=== PATIENT | male | born 1960 | race Caucasian/White ===

== ENCOUNTER 2019-03-31 06:26 | Inpatient (IN) | payer BC ==
[2019-03-31 07:01] LABS: #Basophils 0.1 thou/uL (0.0-0.2); #Eosinphils 0.1 thou/uL (0.0-0.7); #Monocytes 0.7 thou/uL (0.11-0.59); #Neutrophils 5.1 thou/uL (1.40-6.50); %Basophils 0.9 % (0.0-1.0); %Lymphocytes 14.1 % (21.0-51.0); %Monocytes 9.4 % (0.0-10.0); %Neutrophils 73.5 % (42.0-75.0); Hemoglobin 14.8 g/dL (14.0-18.0); Mean Corpuscular HGB CONC 33.5 g/dL (32.0-36.0); Mean Corpuscular Hemoglobin 29.7 pg (27.0-31.0); Mean Corpuscular Volume 88.6 fL (78.0-98.0); Mean Platelet Volume 7.3 fL (7.4-10.4); Platelet Count 306 thou/uL (130-400); RBC Distribution Width 13.4 % (11.5-14.5); Red Blood Cell (RBC) Count 4.99 mill/uL (4.70-6.10); White Blood Cell (WBC) Count 6.9 thou/uL (4.8-10.8)
[2019-03-31 07:13] LABS: ALT (SGPT) 26 U/L (8-55); AST (SGOT) 23 U/L (5-34); Albumin 4.8 g/dL (3.5-5.0); Alkaline Phosphatase 210 U/L (40-110); Anion Gap 16 mmol/L (10-20); BUN (Urea Nitrogen) 9 mg/dL (8.4-25.7); Bilirubin, Total 0.9 mg/dL (0.2-1.2); Calc. Creatinine Clearance 0 mL/min (70-130); Calcium 10.1 mg/dL (7.8-10.44); Carbon Dioxide 29 mmol/L (22-29); Chloride 93 mmol/L (98-107); Estimated GFR-MDRD 78; Globulin 3.6 g/dL (2.4-3.5); Glucose 336 mg/dL (70-105); Protein, Total 8.4 g/dL (6.0-8.3); Sodium 134 mmol/L (136-145)
[2019-03-31] MEDS ORDERED: Aspirin Chewable 81 MG TAB ONE (07:27)
[2019-03-31] MEDS ORDERED: Azithromycin 500 MG VIAL ONE (07:27)
[2019-03-31] MEDS ORDERED: cefTRIAXone\\ROCEPHIN 2 GM VIAL ONE (07:27)
[2019-03-31 07:34] LABS: CKMB 1.9 ng/mL (0-6.6)
--- NOTE | 2019-03-31 07:38 | RAD ---
CHEST ONE VIEW PORTABLE: HISTORY: Chest pain and shortness of breath. FINDINGS: Borderline heart size. Bilateral vascular congestion with some increased markings bilaterally and julissa e left sided pleural thickening or some pleural effusion. No confluent pneumonia. IMPRESSION: Bilateral vascular congestion with increased markings bilaterally and some pleural changes in the lef t chest. Continue short-term followup. POS: [facility]
[2019-03-31] MEDS ORDERED: Furosemide 40 MG/4 ML VIAL ONE (08:29)
[2019-03-31] MEDS ORDERED: Nitroglycerin 2% Ointment 1 INCH/1 GM Packet ONE (08:29)
[2019-03-31] MEDS ORDERED: Dextrose 5% in Water 1,000 ML IV PRN (09:16)
[2019-03-31] MEDS ORDERED: Dextrose 50% Abboject 50 ML SYRINGE SLOW IVP PRN (09:16)
[2019-03-31] MEDS ORDERED: Morphine 4 MG/ML VIAL SLOW IVP PRN (09:42)
[2019-03-31] MEDS ORDERED: Ondansetron PF 4 MG/2 ML Vial IVP PRN (09:42)
[2019-03-31 10:32] VITALS: BMI 29.6
--- NOTE | 2019-03-31 10:38 | HP ---
CHIEF COMPLAINT: Shortness of breath and chest pain. HISTORY OF PRESENT ILLNESS: The patient is a 59-year-old male with history of rectal cancer and history of diabetes, who is currently not on any medications, had rectal cancer, status post chemoradiation and surgery in 2013 and 2014. Also, has a history of DVT, which was provoked, who comes into the hospital with complaints of shortness of breath and chest pain going on for about a week. The patient states that for about a week, he has noticed that initially he thought it was a sinus congestion, has been having worsening shortness of breath on exertion, especially mowing his lawn. He states that he does have PND, but no orthopnea. He states that he wakes up in the middle of the night, sometimes getting feeling very wheezy and unable to catch his breath. He denies any fevers or chills, any abdominal pain or diarrhea, any weight loss or any fullness. The patient states that he has never really followed up with his oncologist after since 2013 and 2014 and has never had a colonoscopy or any further workup. He also does not take any blood sugar medications. He has taken himself off it. He used to take holistic medications. The patient stated that last night he came into the hospital because his shortness of breath at rest got worse to the point that he could not catch his breath, so he came into the hospital. Denied any significant chest tightness currently, however, he states that initially he started having a pressure-like sensation to the right side radiating to the left side, felt like someone's arm was on his chest. PAST MEDICAL HISTORY: History of rectal cancer; history of diabetes, not on any medication; and history of DVT. PAST SURGICAL HISTORY: He has had a rectal surgery and tonsillectomy. FAMILY HISTORY: Mother had Alzheimer's. Father had small cell carcinoma of the lung. REVIEW OF SYSTEMS: All negative except for the ones mentioned above in the HPI. SOCIAL HISTORY: The patient dips, does not smoke. He drinks alcohol every day with some liquor. No withdrawals noted. No known recreational drug use. He is a full code. PHYSICAL EXAMINATION: VITAL SIGNS: Are as of the following; temperature of 98.4, oxygen saturation 95% on 2 L, blood pressure 139/97, and pulse of 97. GENERAL: He is awake, alert, and oriented x3. Does not appear in any distress. CARDIOVASCULAR: S1 and S2 present. No murmurs, rubs, or gallops. LUNGS: Decreased breath sounds to right lung. ABDOMEN: Soft and nontender. Bowel sounds are present x2. EXTREMITIES: No edema. Pedal pulses are present x2. NEUROVASCULAR: Neurovascular-sanchez, no focal deficits noted. SKIN: No cuts, lesions, or bruises noted. DIAGNOSTIC DATA: Labs are as of the following; WBC of 6.9, hemoglobin of 14.8, hematocrit of 44.2, and platelets of 306. Chemistry; sodium of 134, potassium of 4.0, BUN of 9, creatinine of 0.98, glucose of 336. . Troponin is 0.030. His BNP is 117.5. Alkaline phosphatase is 210. He did have a CT chest, which indicated right Toprol effusion, no PE. However, also noted to have a possible liver mass. Chest x-ray that was done in the ER just showed he had bilateral vascular congestion. ASSESSMENT AND PLAN: The patient is a very pleasant 59-year-old male, who presents to the hospital with complaints of shortness of breath. 1. Shortness of breath, most likely secondary to new-onset heart failure. The patient has no history of heart disease. We will go ahead and get an echocardiogram. We will start him on some diuretics. I also may consult Cardiology based on the echocardiogram. His troponins have been mildly elevated. We will try and trend them. 2. Right liver mass. We will check an alpha-fetoprotein. We will get a right upper quadrant ultrasound. He may also need a triphasic CT or a CT with contrast to further evaluate of his liver mass. Given his history of rectal cancer, this possibility could be a malignant. We may require a biopsy or even GI for further consultation based on the radiological findings. 3. Diabetes. His sugars were 336. We will check hemoglobin A1c. Put him on some sliding scale and continue to monitor. 4. Deep vein thrombosis prophylaxis. We will put patient on SCDs. Job ID: [id number]
--- NOTE | 2019-03-31 11:05 | CT ---
CT ANGIOGRAM CHEST WITH 3D RENDERING: HISTORY: Chest pain. Dyspnea. Shortness of breath for one to two weeks. Borderline cardiomegaly. Bilateral ple ural effusions, small to moderate on the right side and very small on the left side. Bilateral vascul ar congestion. No convincing CT evidence for acute pulmonary embolism. FINDINGS: There are multiple pulmonary nodules within the right and left lungs, the largest of which is in the lingula, at 1.2 cm, with several bilateral pulmonary nodules, up to 0.8 cm. Poorly defined low attenu ation nodularity replacing much of the left lobe of the liver, up to approximately 12 cm in transvers e diameter, very suspicious for a large neoplastic mass, such as a hepatoma. IMPRESSION: 1. Large poorly defined mass replacing much of the left lobe of the liver, suspicious for hepatoma. 2. Bilateral pulmonary nodules, up to 1.2 cm in the lingula. Further evaluation with PET scan is lele mmended. 3. Bilateral pleural effusions, greater on the right side. 4. No convincing CT evidence for acute pulmonary embolism. 5. Enlarged right hilar lymph node. 6. Other findings as above. Findings were discussed with Kamryn in the emergency room at 8:[address] CODE CR CODE LN POS: [facility]
[2019-03-31 13:19] LABS: Hemoglobin A1c 11.6 % (4.0-6.0)
[2019-03-31 13:40] LABS: Troponin I 0.025 ng/mL (< 0.028)
[2019-03-31] MEDS ORDERED: Iopamidol-370 76% 500 ML 1 ML ONE (13:41)
[2019-03-31] MEDS: HumaLOG 300 UNITS/3 ML VIAL SC PRN ×3 (14:00→21:13)
[2019-03-31] MEDS: Furosemide 20 MG/2 ML VIAL SLOW IVP SCH (14:00)
[2019-03-31] MEDS: Sodium Chloride 0.9% 10 ML ONE ×2 (14:01→20:24)
--- NOTE | 2019-03-31 14:59 | ULT ---
Right upper quadrant ultrasound: HISTORY: History of rectal cancer, liver mass. Coarse liver echogenicity evidence for nonspecific chronic liver disease. Somewhat poorly defined bethany id multilobulated mass replacing most of the left lobe of the liver measuring 6.4 x 6.6 x 7.2 cm. This could represent a large solitary liver hepatoma versus a very large solitary metastasis. The gal lbladder demonstrates no evidence for gallstones, wall thickening or pericholecystic fluid. There is evidence for right pleural effusion. 1.3 cm right renal cyst without hydronephrosis. Common bile d uct 0.4 cm. IMPRESSION: Very large solid mass replacing much of the left lobe of the liver. Coarse nonspecific liver echogenicity evidence for chronic liver disease.
[2019-03-31] MEDS ORDERED: Carvedilol 6.25 MG TAB PO SCH (17:00)
[2019-03-31] MEDS: Lisinopril 5 MG TAB PO SCH (20:24)
[2019-03-31] MEDS ORDERED: Acetaminophen 325 MG TAB PO PRN (23:49)
--- NOTE | 2019-04-01 01:04 | CON ---
DATE OF CONSULTATION: 03/31/2019 REASON FOR CONSULTATION: Congestive heart failure. HISTORY OF PRESENT ILLNESS: Mr. Cardenas is a pleasant 59-year-old man. Recently he has been noticing increasing cough especially when he try to lie down and some shortness of breath. He ultimately went to an urgent care and they did notice a very rapid heart rate, he was referred to the emergency room. He does have shortness of breath with exertion and difficulty breathing when he tries to lie flat. He has received diuretics today, and he says his breathing is improving. He has a history of rectal cancer many years ago. He said he has not gone for followup concerning this problem. It is found on an ultrasound during this admission that he has a large mass in his liver. The patient had surgery of further rectal cancer 2013. He later had a deep venous thrombosis that was treated with anticoagulants. PAST MEDICAL HISTORY: As outlined above. Also diabetes, but he is not taking any medicine. PAST SURGICAL HISTORY: As outlined above. FAMILY HISTORY: Multiple people have coronary artery disease. REVIEW OF SYSTEMS: Otherwise, negative. SOCIAL HISTORY: No smoking. He does drink alcohol. PHYSICAL EXAMINATION: GENERAL: This is a very pleasant, cooperative gentleman, in no distress. He still cannot lie down flat. VITAL SIGNS: His blood pressure 142/94, then 122/75, pulse 106, it is sinus with frequent PACs. EYES: Sclerae nonicteric. MOUTH: Mucous membranes moist. NECK: Supple. No lymphadenopathy. LUNGS: Clear. No wheezing, rales, or rhonchi. CARDIAC: Tachycardiac for rest. No murmur, rub, or gallop. ABDOMEN: Soft, nontender. EXTREMITIES: No clubbing or cyanosis. No edema. Good peripheral pulses. LABORATORY STUDIES: EKG; sinus tachycardia with PVCs, nonspecific ST changes and nonspecific T-wave changes. BNP is markedly elevated at 1175, creatinine 0.98. Hemoglobin is 14.8. D-dimer was 1.2. Chest CTA revealed lung nodule and a large poorly-defined mass replacing much of the left lobe of the liver suspicious for hepatoma. ASSESSMENT: 1. Congestive heart failure, probably systolic, acute on chronic. Echocardiogram pending. 2. History of rectal cancer with abnormal findings on evaluation of his liver and lungs, possibly metastatic disease. 3. Uncontrolled diabetes. 4. Currently not compensated from a cardiac standpoint, unable to lie flat before becoming short of breath. PLAN: 1. Increase carvedilol dose, heart rate is still high. 2. Continue diuresis. 3. Increase his BARI inhibitors. 4. Echocardiogram tomorrow. We will follow with you. Ultimately cardiac catheterization and evaluation of his underlying probable malignancy. Job ID: [id number]
[2019-04-01 04:50] LABS: #Basophils 0.1 thou/uL (0.0-0.2); #Eosinphils 0.2 thou/uL (0.0-0.7); #Monocytes 0.7 thou/uL (0.11-0.59); #Neutrophils 3.8 thou/uL (1.40-6.50); %Basophils 1.2 % (0.0-1.0); %Eosinophils 3.9 % (0.0-10.0); %Lymphocytes 17.5 % (21.0-51.0); %Monocytes 11.4 % (0.0-10.0); %Neutrophils 66.1 % (42.0-75.0); Hemoglobin 12.9 g/dL (14.0-18.0); Mean Corpuscular HGB CONC 31.9 g/dL (32.0-36.0); Mean Corpuscular Hemoglobin 28.2 pg (27.0-31.0); Mean Corpuscular Volume 88.4 fL (78.0-98.0); Mean Platelet Volume 7.5 fL (7.4-10.4); Platelet Count 293 thou/uL (130-400); RBC Distribution Width 13.3 % (11.5-14.5); Red Blood Cell (RBC) Count 4.58 mill/uL (4.70-6.10); White Blood Cell (WBC) Count 5.7 thou/uL (4.8-10.8)
[2019-04-01 05:11] LABS: ALT (SGPT) 18 U/L (8-55); AST (SGOT) 15 U/L (5-34); Albumin 3.8 g/dL (3.5-5.0); Alkaline Phosphatase 161 U/L (40-110); Anion Gap 14 mmol/L (10-20); BUN (Urea Nitrogen) 14 mg/dL (8.4-25.7); Bilirubin, Total 0.5 mg/dL (0.2-1.2); Calc. Creatinine Clearance 118 mL/min (70-130); Calcium 9.4 mg/dL (7.8-10.44); Carbon Dioxide 29 mmol/L (22-29); Cardiac Risk 4.9 (Less than 4.5); Chloride 98 mmol/L (98-107); Cholesterol 186 mg/dl (< 200 Desired); Estimated GFR-MDRD 90; Globulin 2.9 g/dL (2.4-3.5); Glucose 280 mg/dL (70-105); HDL Cholesterol 38 mg/dL (>60 Neg Risk); LDL Cholesterol, Calculated 132 mg/dL; Potassium 3.8 mmol/L (3.5-5.1); Protein, Total 6.7 g/dL (6.0-8.3); Sodium 137 mmol/L (136-145); Triglycerides 78 mg/dL (Less than 150)
[2019-04-01] MEDS: Furosemide 20 MG/2 ML VIAL SLOW IVP SCH ×2 (05:38→15:02)
--- NOTE | 2019-04-01 08:32 | PDOC.HOSPP ---
- Subjective Encounter Date: 04/01/19 Encounter Time: 11:45 Subjective: Patient feeling much better. Breathing well. No cough. No SOB. Never had any LE edema. - Objective Vital Signs & Weight: Vital Signs (12 hours) Temp Pulse Resp BP BP Pulse Ox 04/01/19 07:56 97.8 F 90 18 115/67 95 04/01/19 03:50 98 F 99 20 113/59 L 95 03/31/19 23:15 98.8 F 92 16 103/63 94 L Weight Weight 198 lb 3.2 oz I&O: 03/31/19 04/01/19 04/02/19 06:59 06:59 06:59 Intake Total 1440 Output Total 4625 Balance -3185 Result Diagrams: 04/01/19 04:17 04/01/19 04:17 Additional Labs: Accuchecks 04/01/19 03/31/19 03/31/19 05:50 20:22 17:25 POC Glucose 330 H 310 H 306 H 03/31/19 03/31/19 13:55 11:16 POC Glucose 245 H 308 H Hospitalist ROS - Review of Systems Constitutional: denies: fever, chills Respiratory: denies: cough, shortness of breath Cardiovascular: denies: chest pain, palpitations, orthopnea, edema Gastrointestinal: denies: nausea, vomiting, abdominal pain - Medication Medications: Active Medications Generic Name Dose Route Start Last Admin Trade Name Freq PRN Reason Stop Dose Admin Acetaminophen 650 mg 03/31/19 23:49 03/31/19 23:58 Tylenol PO 650 mg Q6H PRN Administration Pain Furosemide 20 mg 03/31/19 14:00 04/01/19 05:38 Lasix SLOW IVP 20 mg 0600,1400 GUICHO Administration Insulin Human Lispro 0 units 03/31/19 20:49 03/31/19 21:13 Humalog SC 4 unit .BEDTIME SLIDING SC PRN Administration BEDTIME SLIDING SCALE Protocol Lisinopril 5 mg 03/31/19 21:00 03/31/19 20:24 Zestril PO 5 mg BID GUICHO Administration - Exam General Appearance: NAD, awake alert ENT: moist mucosa Heart: RRR, no murmur, no gallops, no rubs Respiratory: CTAB, no wheezes, no rales, no ronchi Gastrointestinal: soft, non-tender, non-distended, normal bowel sounds Extremities: no edema Psychiatric: normal affect, normal behavior, A&O x 3 Hosp A/P (1) Acute congestive heart failure Code(s): I50.9 - HEART FAILURE, UNSPECIFIED Status: Acute Qualifiers: Heart failure type: systolic Qualified Code(s): I50.21 - Acute systolic ( congestive) heart failure (2) Liver mass, left lobe Code(s): R16.0 - HEPATOMEGALY, NOT ELSEWHERE CLASSIFIED Status: Acute (3) Diabetes mellitus type 2 in nonobese Code(s): E11.9 - TYPE 2 DIABETES MELLITUS WITHOUT COMPLICATIONS Status: Chronic - Plan Lasix, BARI, Carvedilol, ECHO- showing EF 15-20%. Appreciate Dr. Pierre's assistance. Will need cardiac catheterization. Consult Dr. Coffey for large liver mass replacing most of left lobe liver, likely needs biopsy. DVT proph: Lovenox
[2019-04-01] MEDS ORDERED: Enoxaparin Sodium 40 MG/0.4 ML SYRINGE SC SCH (09:00)
[2019-04-01] MEDS ORDERED: Aspirin 81 mg Enteric Coated Tablet PO SCH (09:00)
[2019-04-01] MEDS ORDERED: Lisinopril 5 MG TAB PO SCH (09:00)
[2019-04-01] MEDS: Lisinopril 5 MG TAB PO SCH ×2 (10:16→10:18)
[2019-04-01] MEDS: Carvedilol 25 MG TAB PO SCH ×2 (10:17→17:45)
[2019-04-01] MEDS: Sodium Chloride 0.9% 10 ML ONE (10:18)
[2019-04-01] MEDS: HumaLOG 300 UNITS/3 ML VIAL SC PRN ×3 (11:53→21:35)
--- NOTE | 2019-04-01 14:04 | PRG ---
DATE OF SERVICE: 04/01/2019 SUBJECTIVE: Mr. Cardenas feels better. He is able to lay flat now. Really improved clinically quite a bit. OBJECTIVE: VITAL SIGNS: His blood pressure is 110/60 and pulse is 80. LUNGS: Clear. CARDIAC: Normal S1 and normal S2. ABDOMEN: Soft and nontender. DIAGNOSTIC STUDIES: Echocardiogram shows ejection fraction of 15% to 20% with global hypokinesis. DISCUSSION: I did speak with Dr. Maxwell that we may need to get a tissue diagnosis from the mass in his liver. I will do a heart catheterization, but if he needs a stent, he would need dual anti-platelet therapy that may keep him from getting the biopsy done. Tentatively, we will wait on the GI to see if a biopsy could be arranged. Tentatively, we will plan on catheterization on Monday, waiting for the word. Discussed risk of stroke, heart attack, iodine allergy, loss of blood supply to leg or kidney, stent thrombosis, stent restenosis. He understands and wished to proceed. We will tentatively plan for Monday. Job ID: [id number]
[2019-04-01] MEDS ORDERED: Sodium Chloride 0.9% 10 ML ONE (14:59)
[2019-04-01 15:01] LABS: INR-International Normal Ratio 1.1; PTT 28.5 SEC (22.9-36.1); Prothrombin Time 14.1 SEC (12.0-14.7)
[2019-04-01] MEDS ORDERED: Communication Order-Pharmacy FS SCH (15:45)
--- NOTE | 2019-04-01 20:03 | CON ---
DATE OF CONSULTATION: 04/01/2019 CHIEF COMPLAINT: Shortness of breath. HISTORY OF PRESENT ILLNESS: Mr. Cardenas is a 59-year-old man, who originally developed some nasal congestion, sore throat, and shortness of breath over the weekend. Originally thought this is more of a sinus issue, but then went onto the emergency room yesterday and at this point, was having more significant shortness of breath along with some substernal chest pressure that did not radiate. He has had no nausea or vomiting, diarrhea, or constipation. No blood in the stool. No fevers or chills. He has had some orthopnea lately. He had a CT angiogram of his chest when he came into the emergency room, which showed a large poorly defined mass replacing much of the left lobe of the liver concerning for malignant process. He had bilateral pulmonary nodules up to 1.2 cm. He had bilateral pleural effusions noted. He had an enlarged right hilar lymph node. He had an ultrasound of the liver that showed again a large solid mass taking up much of the left lobe of the liver measuring 6.6 x 7.2 x 6.4 cm. The common bile duct measured 0.4 cm. The liver otherwise did have a coarse echotexture suggestive of chronic liver disease. He was given furosemide with marked improvement in his shortness of breath. He had an echocardiogram that showed severe global hypokinesis with an ejection fraction of 15% to 20%. Left atrium was severely dilated. Moderate mitral regurgitation is present. Mild tricuspid regurgitation was noted. He has a history of diabetes and has not been taking any medications for that. His hemoglobin A1c was noted to be elevated at 11.6. PAST MEDICAL HISTORY: Rectal cancer. He was diagnosed with rectal cancer in 2014 by colonoscopy. He subsequently underwent radiation and chemotherapy followed by surgical resection followed by additional chemotherapy. He never went back for any followup after that. He has had no colonoscopy since then. He has a history of diabetes and hypertension, but has been on no medication for that. PAST SURGICAL HISTORY: Rectal resection, chemotherapy and radiation. FAMILY HISTORY: Father had some type of small cell cancer, but states it did not start in the lung. SOCIAL HISTORY: He has a drink of alcohol each night. No drugs. He dips tobacco. ALLERGIES: NO KNOWN DRUG ALLERGIES. MEDICATIONS: Prior to admission, none. Current inpatient medications: 1. Furosemide. 2. Carvedilol. 3. Aspirin. 4. Lisinopril. REVIEW OF SYSTEMS: Negative x10 systems reviewed, except as stated in history of present illness. PHYSICAL EXAMINATION: VITAL SIGNS: Temperature 98.3, pulse 82, blood pressure 110/63, oxygen saturation 93% on room air. GENERAL: He is in no acute distress. Alert and oriented x3. HEENT: Eyes have no scleral icterus. Oropharynx is clear without lesions. No cervical or supraclavicular lymphadenopathy. LUNGS: Clear to auscultation bilaterally. HEART: Regular rate and rhythm without murmur. ABDOMEN: Soft, nontender, and nondistended. Bowel sounds are present. EXTREMITIES: No lower extremity edema. LABORATORY DATA: Creatinine 0.87, hemoglobin A1c 11.6. Bilirubin 0.5, AST 15, ALT 18, alkaline phosphatase 161, alpha fetoprotein 2.2, albumin 3.8. BNP 1175. IMPRESSION: 1. Large liver mass and pulmonary nodules concerning for malignant process. 2. History of rectal cancer treated with chemo and radiation and surgical resection for which he has had no followup since 2014. 3. Severe cardiomyopathy. This is being evaluated by Dr. Pierre. Heart catheterization is being considered for later in the week. 4. Diabetes mellitus, which has been untreated with a high hemoglobin A1c. RECOMMENDATIONS: 1. CT-guided biopsy of the liver to establish diagnosis and treatment options. 2. Check coags. 3. Hematology evaluation. Job ID: [id number]
--- NOTE | 2019-04-01 23:01 | CON ---
DATE OF CONSULTATION: REASON FOR CONSULTATION: Liver mass. HISTORY OF PRESENT ILLNESS: Mr. Cardenas is a 59-year-old gentleman with past medical history of rectal cancer in 2013 and 2014. He underwent 6 weeks of radiation and sounds like infusional 5-FU and then had surgery, said 16 lymph nodes were negative. He was due for more chemo after surgery, but said he only did 2/10 treatments secondary to cold sensitivity from the drug itself. He has never followed up with GI for colonoscopies. He began having shortness of breath several weeks ago. He thought it was sinus congestion, but it did not improve, so he presented to the emergency room. In the emergency room, he underwent a chest x-ray, which showed bilateral vascular congestion. He then underwent a CT angio of his chest, which showed a large poorly defined mass replacing the left lobe of the liver. There were bilateral pulmonary nodules, largest was 1.2 cm in the lingula. He had bilateral pleural effusions and enlarged right hilar lymph node. His AFP was normal. He had an abdominal ultrasound, which showed a 6.4 x 6.6 x 7.2 cm lesion in the left lobe of the liver. He was undergoing evaluation for his shortness of breath and had an echo. His EF was 15%. His troponins were mildly elevated. He did receive 4 baby aspirin on admission. He denies any complaints at this time. PAST MEDICAL HISTORY: 1. Rectal cancer, status post chemo radiation and surgery. 2. DVT post surgery. 3. Diabetes. PAST SURGICAL HISTORY: 1. Rectal surgery. 2. Tonsillectomy. ALLERGIES: NO KNOWN DRUG ALLERGIES. HOME MEDICATIONS: None. FAMILY HISTORY: He had a father with small cell carcinoma. His mother had Alzheimer's. SOCIAL HISTORY: , lives with his spouse. Occasional alcohol. No drug use. Dips, no smoking. REVIEW OF SYSTEMS: A 10-point review of systems is negative. PHYSICAL EXAMINATION: VITAL SIGNS: Temperature 98.3, pulse is 82, respiratory rate 15, BP is 110/63. He is 93% on room air. GENERAL: This is a well-developed, well-nourished male, in no acute distress. HEENT: Normocephalic, atraumatic. Pupils are equal and reactive to light. NECK: Supple. CV: Irregular rate and rhythm. LUNGS: Diminished anterior. ABDOMEN: Soft and nontender. Bowel sounds are positive. EXTREMITIES: No clubbing, or cyanosis. SKIN: No rash. HEMATOLOGICAL: No petechiae or purpura. NEUROLOGICAL: Nonfocal. PERTINENT LABS AND X-RAYS: Current WBCs are 5.7, hemoglobin 12.9, hematocrit 40.5, platelet count is 293,000. He has 66% neutrophils, 17% lymphocytes, 12% monocytes. PT is 14.1, INR is 1.1, and PTT is 28.5. Sodium 137, potassium 3.8, chloride 98, CO2 is 29, BUN is 14, creatinine 0.87. A1c is 11.6, calcium is 9.4, bilirubin 0.5, AST is 15, ALT is 16, alkaline phosphatase is 161, serum total protein 6.7, albumin 3.8, globulin 2.9. BNP is 1175, AFP 2.2. Radiology, per HPI. ASSESSMENT: 1. Large liver lesion suspicious for malignancy. 2. Heart failure with bilateral pleural effusions. 3. Poorly controlled diabetes. DISCUSSION: The patient is hesitant to consider biopsy or chemotherapy as he feels he had a hard time tolerating treatment for his rectal cancer. I encouraged him to at least do a liver biopsy as medications have changed in the last 5 years and he may be able to give him something better tolerated. It is unclear if this is metastatic disease from his rectal cancer, certainly could be. He, however, is undergoing cardiac cath tomorrow for an EF of 15% and has received aspirin on admission, so liver biopsy would have to be postponed at least a week according to Interventional Radiology. I provided my clinic information and strongly encouraged him to contact us for biopsy and to sit and discuss results and possible treatment options, at which point, he declined as he felt he did not want to pursue further treatment. Thank you for the consult. Job ID: [id number]
[2019-04-02] MEDS ORDERED: Sodium Chloride 0.9% 1,000 ML IV SCH (06:00)
[2019-04-02] MEDS: Carvedilol 25 MG TAB PO SCH ×2 (06:09→19:36)
[2019-04-02] MEDS: Lisinopril 5 MG TAB PO SCH (06:09)
[2019-04-02] MEDS ORDERED: Heparin (Artline) 1,000 ML ONE (06:30)
[2019-04-02] MEDS ORDERED: Lidocaine 1% (PF) 30 ML VIAL ONE (06:30)
[2019-04-02] MEDS ORDERED: Fentanyl 100 MCG/2 ML VIAL ONE (08:04)
[2019-04-02] MEDS ORDERED: Midazolam HCl 2 mg/2 ml Vial ONE (08:04)
[2019-04-02] MEDS ORDERED: Acetaminophen/Codeine 30-300mg Tablet PO PRN ×2 (08:33)
[2019-04-02] MEDS ORDERED: Nitroglycerin 0.4 MG TAB (25 Tab Bottle) SL PRN (08:33)
[2019-04-02] MEDS ORDERED: Sodium Chloride 0.9% 200 ML IV PRN (08:33)
--- NOTE | 2019-04-02 09:02 | PDOC.HOSPP ---
- Subjective Encounter Date: 04/02/19 Encounter Time: 11:30 Subjective: Patient had cath this AM with normal coronary arteries. No SOB. No chest pain. - Objective Vital Signs & Weight: Vital Signs (12 hours) Temp Pulse Resp BP BP BP Pulse Ox 04/02/19 06:09 88 119/72 04/02/19 04:00 98.1 F 88 18 119/72 95 04/02/19 00:00 81 102/58 L Weight Weight 199 lb 4.8 oz I&O: 04/01/19 04/02/19 04/03/19 06:59 06:59 06:59 Intake Total 1440 2415 Output Total 4625 1100 Balance -3185 1315 Result Diagrams: 04/01/19 04:17 04/01/19 04:17 Additional Labs: Accuchecks 04/02/19 04/01/19 04/01/19 06:43 20:30 16:52 POC Glucose 278 H 367 H 243 H 04/01/19 10:56 POC Glucose 421 H Hospitalist ROS - Review of Systems Constitutional: denies: fever, chills Respiratory: denies: cough, shortness of breath Cardiovascular: denies: chest pain, palpitations Gastrointestinal: denies: nausea, vomiting, abdominal pain - Medication Medications: Active Medications Generic Name Dose Route Start Last Admin Trade Name Freq PRN Reason Stop Dose Admin Acetaminophen 650 mg 03/31/19 23:49 03/31/19 23:58 Tylenol PO 650 mg Q6H PRN Administration Mild Pain (1-3) Aspirin 81 mg 04/01/19 09:00 04/01/19 10:17 Ecotrin PO 81 mg DAILY GUICHO Administration Carvedilol 25 mg 04/01/19 08:00 04/02/19 06:09 Coreg PO 25 mg BID-WM GUICHO Administration Sodium Chloride 1,000 mls @ 100 mls/hr 04/02/19 06:00 04/02/19 06:07 Normal Saline 0.9% IV 04/02/19 12:00 1,000 mls .Q10H GUICHO Administration Insulin Human Lispro 0 units 03/31/19 20:49 04/01/19 18:27 Humalog SC 4 unit .MODERATE SLIDING SC PRN Administration MODERATE SLIDING SCALE Protocol Insulin Human Lispro 0 units 03/31/19 20:49 04/01/19 21:35 Humalog SC 5 unit .BEDTIME SLIDING SC PRN Administration BEDTIME SLIDING SCALE Protocol Lisinopril 5 mg 03/31/19 21:00 04/02/19 06:09 Zestril PO 5 mg BID GUICHO Administration - Exam General Appearance: NAD, awake alert ENT: moist mucosa Heart: RRR, no murmur, no gallops, no rubs Respiratory: CTAB, no wheezes, no rales, no ronchi Gastrointestinal: soft, non-tender, non-distended, normal bowel sounds Extremities: no edema Psychiatric: normal affect, normal behavior, A&O x 3 Hosp A/P (1) Acute congestive heart failure Code(s): I50.9 - HEART FAILURE, UNSPECIFIED Status: Acute Qualifiers: Heart failure type: systolic Qualified Code(s): I50.21 - Acute systolic ( congestive) heart failure (2) Liver mass, left lobe Code(s): R16.0 - HEPATOMEGALY, NOT ELSEWHERE CLASSIFIED Status: Acute (3) Diabetes mellitus type 2 in nonobese Code(s): E11.9 - TYPE 2 DIABETES MELLITUS WITHOUT COMPLICATIONS Status: Chronic - Plan Lasix, BARI, Carvedilol, ECHO- showing EF 15-20%. Cardiac catheterization with normal coronaries. 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 Consulted Dr. Coffey for large liver mass replacing most of left lobe liver, needs biopsy. Kinga Zaragoza has discussed with patient. Can d/c all ASA and Plavix. Treat CHF and can then have f/u biopsy as outpatient. Dr. Pierre arranging LifeVest for tomorrow then can d/c home. DVT proph: Lovenox
[2019-04-02] MEDS: HumaLOG 300 UNITS/3 ML VIAL SC PRN ×3 (10:06→18:14)
[2019-04-02] MEDS ORDERED: Iopamidol 370 76% 100 ML VIAL ONE (10:55)
--- NOTE | 2019-04-02 21:15 | PDOC.EVN ---
Event Note - Event Note Event Note: Notified by RN, patient with low BP 89/53 after receiving evening dose of Coreg 25 mg PO. Prior to Coreg BP was 108 systolic and has been in low 100s all day. Due for Lisinopril which I have advised to hold. HR is currently 76. Sats and temp normal. Patient is asymptomatic. Will continue to monitor.
[2019-04-03] MEDS: Lisinopril 5 MG TAB PO SCH (01:48)
[2019-04-03] MEDS ORDERED: glipiZIDE 10 MG TAB PO SCH (07:30)
--- NOTE | 2019-04-03 08:06 | PDOC.HOSPP ---
- Subjective Encounter Date: 04/03/19 Encounter Time: 09:45 Subjective: Patient without SOB this AM, did have a little cough so Dr. Pierre gave another IV dose of Lasix. No other complaints. - Objective Vital Signs & Weight: Vital Signs (12 hours) Temp Pulse Resp BP BP Pulse Ox 04/03/19 04:04 98.3 F 83 18 112/69 94 L 04/03/19 01:48 88 89/53 L Weight Weight 199 lb 4.8 oz I&O: 04/02/19 04/03/19 04/04/19 06:59 06:59 06:59 Intake Total 2415 2940 Output Total 1100 1300 Balance 1315 1640 Result Diagrams: 04/01/19 04:17 04/01/19 04:17 Additional Labs: Accuchecks 04/03/19 04/02/19 04/02/19 06:04 20:45 16:52 POC Glucose 244 H 105 309 H Hospitalist ROS - Review of Systems Constitutional: denies: fever, chills Respiratory: reports: cough. denies: shortness of breath Cardiovascular: denies: chest pain, palpitations, edema Gastrointestinal: denies: nausea, vomiting, abdominal pain - Medication Medications: Active Medications Generic Name Dose Route Start Last Admin Trade Name Freq PRN Reason Stop Dose Admin Acetaminophen 650 mg 03/31/19 23:49 03/31/19 23:58 Tylenol PO 650 mg Q6H PRN Administration Mild Pain (1-3) Carvedilol 25 mg 04/01/19 08:00 04/02/19 19:36 Coreg PO 25 mg BID-WM GUICHO Administration Insulin Human Lispro 0 units 03/31/19 20:49 04/02/19 18:14 Humalog SC 8 unit .MODERATE SLIDING SC PRN Administration MODERATE SLIDING SCALE Protocol Insulin Human Lispro 0 units 03/31/19 20:49 04/01/19 21:35 Humalog SC 5 unit .BEDTIME SLIDING SC PRN Administration BEDTIME SLIDING SCALE Protocol Lisinopril 5 mg 03/31/19 21:00 04/03/19 01:48 Zestril PO Not Given BID GUICHO - Exam General Appearance: NAD, awake alert ENT: moist mucosa Heart: RRR, no murmur, no gallops, no rubs Respiratory: CTAB, no wheezes, no rales, no ronchi Gastrointestinal: soft, non-tender, non-distended, normal bowel sounds Extremities: no cyanosis, no clubbing, no edema Psychiatric: normal affect, normal behavior, A&O x 3 Hosp A/P (1) Acute congestive heart failure Code(s): I50.9 - HEART FAILURE, UNSPECIFIED Status: Acute Qualifiers: Heart failure type: systolic Qualified Code(s): I50.21 - Acute systolic ( congestive) heart failure (2) Liver mass, left lobe Code(s): R16.0 - HEPATOMEGALY, NOT ELSEWHERE CLASSIFIED Status: Acute (3) Diabetes mellitus type 2 in nonobese Code(s): E11.9 - TYPE 2 DIABETES MELLITUS WITHOUT COMPLICATIONS Status: Chronic - Plan Lasix, BARI, Carvedilol, ECHO- showing EF 15-20%. Cardiac catheterization with normal coronaries. 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 BP dropped last night with evening dose Carvedilol. Will discuss decreased dose with Dr. Pierre. Consulted Dr. Coffey for large liver mass replacing most of left lobe liver, needs biopsy. Kinga Zaragoza has discussed with patient. Can d/c all ASA and Plavix. Treat CHF and can then have f/u biopsy as outpatient. Dr. Pierre arranging LifeVest and d/c home today. DVT proph: Lovenox
[2019-04-03] MEDS ORDERED: metFORMIN 500 MG TAB PO SCH ×2 (08:15→17:00)
[2019-04-03] MEDS ORDERED: Potassium Chloride 20 MEQ TAB PO SCH (08:30)
[2019-04-03] MEDS ORDERED: Furosemide 20 MG/2 ML VIAL SLOW IVP SCH (08:30)
--- NOTE | 2019-04-03 09:06 | PRG ---
DATE OF SERVICE: 04/03/2019 SUBJECTIVE: Mr. Cardenas is doing better. He was fitted for a LifeVest last night. He does have a little bit of cough when he lays down and feels a little short of breath when he tries to lay supine. He underwent cardiac catheterization yesterday showing normal coronary arteries with severely depressed left ventricular function and increased end-diastolic pressure. OBJECTIVE: VITAL SIGNS: On examination today, blood pressure is 112/69, pulse 80. LUNGS: Clear. CARDIAC: Normal S1, normal S2. ABDOMEN: Soft and nontender. EXTREMITIES: No edema. ASSESSMENT: 1. Severe cardiomyopathy. 2. Normal coronary arteries. 3. Possible metastatic cancer. The patient so far has declined biopsy. PLAN: 1. Coreg 25 mg twice a day. 2. I will change from BARI inhibitor to Entresto as an outpatient. We will stop the BARI inhibitor and begin Entresto Monday morning. 3. Lasix 20 mg a day. 4. Given a dose of Lasix intravenously here. 5. Stop aspirin. 6. The patient will be encouraged to undergo hepatic biopsy as an outpatient after being off aspirin for a week. 7. He will see us in the office in a week to see Tasha Vora. Job ID: [id number]
[2019-04-03] MEDS: Carvedilol 25 MG TAB PO SCH (09:11)
[2019-04-03 09:33] VITALS: TEMP 98.2
[2019-04-03 11:16] VITALS: BP 100/66
--- NOTE | 2019-04-03 14:26 | DIS ---
DATE OF ADMISSION: 03/31/2019 DATE OF DISCHARGE: 04/03/2019 PRIMARY CARE PHYSICIAN: Keena Call to be established with Leslie Cid MD. REASON FOR ADMISSION: Shortness of breath and chest pain. DIAGNOSES AT DISCHARGE: 1. Acute systolic congestive heart failure with ejection fraction of 15% to 20%. 2. Nonischemic cardiomyopathy. 3. Mass of the left lobe of the liver. 4. Diabetes mellitus type 2. 5. History of previous rectal cancer treated. PROCEDURES: 1. CT scan of the chest with and without contrast showing no pulmonary embolism, some bilateral pleural effusions, bilateral pulmonary nodules up to 1.2 cm and enlarged right hilar lymph node and a large poorly defined mass replacing much of the left lobe of the liver. 2. Ultrasound of the liver and gallbladder showing a very large solid mass replacing much of the left lobe of the liver and then coarse nonspecific liver echogenicity evidenced with chronic liver disease. 3. Echocardiogram transthoracic echocardiogram showing ejection fraction of 15% to 20%, severe global hypokinesis. 4. Cardiac catheterization showing normal coronary arteries, global hypokinesis, and cardiomyopathy. CONSULTATIONS: 1. Cardiology, Dr. Pierre. 2. Gastroenterology, Dr. Coffey. 3. Heme/Oncology, Kinga Zaragoza. SUMMARY OF HOSPITAL COURSE: This is a 59-year-old white male with a history of rectal cancer and diabetes. He had surgery and chemotherapy and radiation for his rectal cancer in 2013 and 2014, also with history of diabetes for which he has stopped taking any medications after losing some weight, but knows not following with any doctor or checking his blood sugars. He came into the hospital with progressive shortness of breath, some chest pains, some cough as well. The patient was found to be in acute congestive heart failure exacerbation. He had a history of previous DVT, so he had a CTA of the chest, which did not show any PEs, but did show a left liver mass. His diabetes was also found to be uncontrolled with blood sugar in 300s and hemoglobin A1c of 11.6. The patient was admitted to the hospital. Dr. Pierre and Dr. Coffey were consulted. Dr. Coffey recommended a liver biopsy. However, the patient is on aspirin due to his acute congestive heart failure and so the biopsy was deferred until outpatient. Dr. Pierre evaluated the patient. We did an echocardiogram, which showed severe systolic congestive heart failure. He recommended a catheterization, which the patient agreed to. This showed normal coronary arteries. The patient was taken off all aspirin and never started on Plavix. With normal coronaries, he was started on carvedilol, originally on lisinopril; however, this has been discontinued, and he is going to start Entresto in [address] Pierre has arranged for a LifeVest and then we will reassess his ejection fraction after treatment to see if he will need an AICD or if the LifeVest can just be discontinued if he has improved EF. The patient did have low blood pressure spell with Coreg of 25, this was decreased to 12.5 at discharge. He is doing well without symptoms and is being discharged to home to follow up as an outpatient. The patient was also started on glyburide with continued elevated blood sugars, and so he was also started on metformin twice a day and is going to follow up with his primary care doctor for continued management of this. DISCHARGE MANAGEMENT: Discharged to home. ACTIVITY: As tolerated. DIET: Diabetic, fluid-restricted, low-sodium diet. EQUIPMENT: LifeVest. FOLLOWUP: Follow up with cardiac rehab in [place], with [facility]. Also follow up with Dr. Leslie Cid. He will see the PA initially on April 07. Follow up with Dr. Pierre in 7 days and with Kinga Zaragoza in 2 to 3 weeks to look at doing a liver biopsy at that time. DISCHARGE MEDICATIONS: 1. Carvedilol 12.5 mg twice a day, 60 tablets dispensed. 2. Furosemide 20 mg daily, 30 tablets dispensed. 3. Glipizide 10 mg daily, 30 tablets dispensed. 4. Metformin 500 mg twice a day, 60 tablets dispensed. 5. Potassium chloride 10 mEq daily, 30 capsules dispensed. 6. Entresto 24/26 mg one tablet twice a day, 60 tablets dispensed, please start this in 2 days. TIME SPENT: Arranging the details of this discharge took 35 minutes. Job ID: [id number]
[2019-04-04] MEDS ORDERED: metFORMIN 500 MG TAB PO SCH (08:00)
[2019-04-04] MEDS ORDERED: Sacubitril 24.5 MG/Valsartan 25.5 MG TABLET PO SCH (21:00)
[2019-04-05] MEDS ORDERED: Sacubitril 24.5 MG/Valsartan 25.5 MG TABLET PO SCH (09:00)
== END 2019-04-03 11:15 | disposition home or self-care (01) | DRG 287 ==
LOC: ERS 06:26 → 2NO 08:07
PROVIDERS: ADMIT Internal Medicine; ATTEND Internal Medicine
PROC: 4A023N7 Measurement of Cardiac Sampling and Pressure, Left Heart, Percutaneous Approach (ICD-10-PCS; principal; 2019-04-02)
PROC: B2111ZZ Fluoroscopy of Multiple Coronary Arteries using Low Osmolar Contrast (ICD-10-PCS; 2019-04-02)
DX: I50.23 Acute on chronic systolic (congestive) heart failure (principal); I42.8 Other cardiomyopathies; R16.0 Hepatomegaly, not elsewhere classified; E11.65 Type 2 diabetes mellitus with hyperglycemia; F17.220 Nicotine dependence, chewing tobacco, uncomplicated; Z85.048 Personal history of other malignant neoplasm of rectum, rectosigmoid junction, and anus; Z86.718 Personal history of other venous thrombosis and embolism; Z90.49 Acquired absence of other specified parts of digestive tract; Z92.3 Personal history of irradiation; Z92.21 Personal history of antineoplastic chemotherapy; Z79.899 Other long term (current) drug therapy; Z79.82 Long term (current) use of aspirin
CPT/HCPCS: 36415; 36416; 71045; 71275; 76705; 76942; 80053; 80061; 82105; 82553; 83036; 83605; 83880; 84443; 84484; 85025; 85379; 85610; 85730; 93005; 93306; 93458; 96365; 96367; 96375; 99152; C1769; J0456; J0696; J1644; J1650; J1940; J2001; J2250; J3010; Q9967

== ENCOUNTER 2019-12-08 08:59 | Inpatient (IN) | payer BC ==
[2019-12-08] MEDS ORDERED: Ondansetron PF 4 MG/2 ML Vial ONE ×2 (09:57→14:33)
[2019-12-08] MEDS ORDERED: Morphine 4 MG/ML VIAL ONE ×2 (09:58→14:33)
[2019-12-08] MEDS ORDERED: Cefepime 1 GM VIAL ONE (09:58)
[2019-12-08 10:04] LABS: #Eosinphils 0.1 thou/uL (0.0-0.7); #Lymphocytes 0.8 thou/uL (1.20-3.40); #Monocytes 0.6 thou/uL (0.11-0.59); #Neutrophils 5.2 thou/uL (1.40-6.50); %Basophils 0.6 % (0.0-1.0); %Eosinophils 1.4 % (0.0-10.0); %Lymphocytes 11.2 % (21.0-51.0); %Neutrophils 77.8 % (42.0-75.0); Hemoglobin 11.3 g/dL (14.0-18.0); Mean Corpuscular HGB CONC 32.4 g/dL (32.0-36.0); Mean Corpuscular Hemoglobin 28.2 pg (27.0-31.0); Mean Platelet Volume 6.2 fL (7.4-10.4); Platelet Count 469 thou/uL (130-400); RBC Distribution Width 14.8 % (11.5-14.5); White Blood Cell (WBC) Count 6.7 thou/uL (4.8-10.8)
[2019-12-08] MEDS ORDERED: Vancomycin 1.5 GRAM/300 ML BAG 1.5 GM in Premix Bag 1 BAG IVPB SCH (10:15)
[2019-12-08 10:25] LABS: ALT (SGPT) 11 U/L (8-55); AST (SGOT) 7 U/L (5-34); Alkaline Phosphatase 90 U/L (40-110); Anion Gap 20 mmol/L (10-20); BUN (Urea Nitrogen) 10 mg/dL (8.4-25.7); Bilirubin, Total 0.2 mg/dL (0.2-1.2); Calc. Creatinine Clearance 105 mL/min (70-130); Calcium 8.8 mg/dL (7.8-10.44); Carbon Dioxide 18 mmol/L (22-29); Chloride 105 mmol/L (98-107); Estimated GFR-MDRD Greater than 90; Glucose 276 mg/dL (70-105); Potassium 4.1 mmol/L (3.5-5.1); Sodium 139 mmol/L (136-145)
[2019-12-08] MEDS ORDERED: Piperacillin/Tazobactam 3.375 GM VIAL ONE (12:23)
--- NOTE | 2019-12-08 14:11 | CT ---
CT ABDOMEN AND PELVIS WITH IV CONTRAST: Date: 12-08-2019 PROVIDED CLINICAL HISTORY: Gluteal wound, history of rectal cancer. FINDINGS: No CT comparisons of the abdomen/pelvis are currently available. Correlation is made with a CT of the chest dated 03-31-2019. The visualized lung bases demonstrate a partially visualized and incompletely characterized partially calcified nodule adjacent to the right inferior hilum measuring about 2.4 cm. Subpleural pulmonary n odule right middle lobe about 8 mm, similar to prior. There is a large hypodense irregular mass involving the majority of the left hepatic lobe, measuring approximately 11.6 x 8.5 cm in greatest transverse dimensions. This is similar to the prior study but comparison is limited given the phase of contrast was for an arterogram on the prior examination. The solid abdominal organs demonstrate an otherwise unremarkable CT appearance. There is marked distention of the urinary bladder. There is extensive soft tissue in the presacral and expected rectal regions. There is poor definition to the rectum itself. There are multiple foci of gas present within the ischial rectal fossa fat and perirectal/presacral regions. There are chronic appearing erosive changes at the anterior rim origin of the sacrum. There is no evidence for bowel obstruction. There is moderate colonic fecal retention. The appendix a ppears normal. There is density alteration within the right gluteal subcutaneous fat as well as cutaneous thickening and foci of subcutaneous air at the inferior aspects of the middle cleft on the right. There is some what circumscribed fluid density at the medial aspect of the inferior right parviz cleft measuring abo ut 3.6 cm. IMPRESSION: 1. Pulmonary nodules, incompletely characterized. Follow up non-emergent chest CT. 2. Large left hepatic lobe mass, similar to prior. Correlate with intervening imaging. Certainly suspicious for a malignant process. 3. Marked distention of the urinary bladder. 4. Extensive abnormal soft tissue density and extraluminal gas within the perirectal, presacral, and ishchial fossa regions. Infectious and neoplastic etiologies are possible. Some of this could al so reflect post treatment change. Correlation with intervening imaging would be necessary for complet e evaluation. 5. Right gluteal cellulitis and associated 3.6 cm fluid density structure that may reflect phleg mon/developing abscess. POS: GISSEL
--- NOTE | 2019-12-08 15:27 | PDOC.GSCN ---
Surgery Consult: HPI - Consult details Date: 12/08/19 Time: 15:26 Reason for consult: other (perirectal fistula) History of present illness: 12/08/19 15:35 -year-old female with a history of rectal cancer status post proctectomy with what appears to be a low coloanal anastomosis in 2014. He had undergone neoadjuvant therapy as well as adjuvant chemoradiation therapy. He has had no further follow-up, and has not had any surveillance colonoscopies. He presents today with buttock pain. On examination, he has multiple, complex colocutaneous fistulea. He reports that he began having boils and drainage in 2016 which has been managed medically up to this point. Of note, he has been completely incontinent since his surgical procedure. He was last admitted in March of this year for shortness of breath and was found to have cardiomyopathy with an ejection fraction of 20 to 25%. Surgery Consult: ROS - Review of Systems All systems: 10 systems reviewed and no additional complaints unless stated below. Surgery Consult: [facility] Past Medical History: Nonischemic cardiomyopathy Heart failure (ejection fraction 20 to 25%) Diabetes mellitus Hypertension Fecal incontinence Past Surgical History: Tonsillectomy Proctectomy with low coloanal anastomosis - Past Family History Pertinent family history: Cancer - Past Social History Smoking Status: Never smoker (Daily chewing tobacco) Alcohol Use: daily Drug Use History: none Living Situation: independent, Surgery Consult: Exam - Physical Exam General: moderate distress, no distress, severe distress, well developed, well nourished ENT: no congestion, no hearing loss, normal mucosa, normal nares, normal pinna Neck: no bruits, no lymphadectomy, no masses, no cinthia distention, trachea midline Respiratory: clear to auscultation, clear to percussion, normal expansion, normal respiratory effort Abdomen: soft, tender Rectum: other (Multiple complex colocutaneous fistula with stool output. Complete incontinence) Integumentary: no abnormal pigmentation, no growths, no rash Neurologic: normal coordination, normal sensation Musculoskeletal: normal gait, normal posture Psychiatric: memory intact, oriented to time, oriented to person, oriented to place, speech is normal Surgery Consult: Meds - Allergies Allergies/Adverse Reactions: Allergies Allergy/AdvReac Type Severity Reaction Status Date / Time No Known Drug Allergies Allergy Verified 03/31/19 09:21 Surgery Consult: Results - Labs Result Diagrams: 12/08/19 09:50 12/08/19 09:50 Lab results: Laboratory Results WBC 6.7 thou/uL (4.8-10.8) 12/08/19 09:50 RBC 4.00 mill/uL (4.70-6.10) L 12/08/19 09:50 Hgb 11.3 g/dL (14.0-18.0) L 12/08/19 09:50 Hct 34.8 % (42.0-52.0) L 12/08/19 09:50 MCV 87.0 fL (78.0-98.0) 12/08/19 09:50 MCH 28.2 pg (27.0-31.0) 12/08/19 09:50 MCHC 32.4 g/dL (32.0-36.0) 12/08/19 09:50 RDW 14.8 % (11.5-14.5) H 12/08/19 09:50 Plt Count 469 thou/uL (130-400) H 12/08/19 09:50 MPV 6.2 fL (7.4-10.4) L 12/08/19 09:50 Neutrophils % 77.8 % (42.0-75.0) H 12/08/19 09:50 Lymphocytes % 11.2 % (21.0-51.0) L 12/08/19 09:50 Monocytes % 9.0 % (0.0-10.0) 12/08/19 09:50 Eosinophils % 1.4 % (0.0-10.0) 12/08/19 09:50 Basophils % 0.6 % (0.0-1.0) 12/08/19 09:50 Neutrophils # 5.2 thou/uL (1.40-6.50) 12/08/19 09:50 Lymphocytes # 0.8 thou/uL (1.20-3.40) L 12/08/19 09:50 Monocytes # 0.6 thou/uL (0.11-0.59) H 12/08/19 09:50 Eosinophils # 0.1 thou/uL (0.0-0.7) 12/08/19 09:50 Basophils # 0.0 thou/uL (0.0-0.2) 12/08/19 09:50 Sodium 139 mmol/L (136-145) 12/08/19 09:50 Potassium 4.1 mmol/L (3.5-5.1) 12/08/19 09:50 Chloride 105 mmol/L (98-107) 12/08/19 09:50 Carbon Dioxide 18 mmol/L (22-29) L 12/08/19 09:50 Anion Gap 20 mmol/L (10-20) 12/08/19 09:50 BUN 10 mg/dL (8.4-25.7) 12/08/19 09:50 Creatinine 0.83 mg/dL (0.7-1.3) 12/08/19 09:50 Estimated GFR (MDRD) Greater than 90 12/08/19 09:50 Glucose 276 mg/dL (70-105) H 12/08/19 09:50 Lactic Acid 1.2 mmol/L (0.5-2.2) 12/08/19 09:50 Calcium 8.8 mg/dL (7.8-10.44) 12/08/19 09:50 Total Bilirubin 0.2 mg/dL (0.2-1.2) 12/08/19 09:50 AST 7 U/L (5-34) 12/08/19 09:50 ALT 11 U/L (8-55) 12/08/19 09:50 Alkaline Phosphatase 90 U/L (40-110) 12/08/19 09:50 Serum Total Protein 6.0 g/dL (6.0-8.3) 12/08/19 09:50 Albumin 3.0 g/dL (3.5-5.0) L 12/08/19 09:50 Globulin 3.0 g/dL (2.4-3.5) 12/08/19 09:50 Albumin/Globulin Ratio 1.0 g/dL (1.2-2.2) L 12/08/19 09:50 - Radiology Interpretation CT scan - abdomen Status: image reviewed by me Additional comments: Demonstrates multiple pulmonary nodules and hilar lymphadenopathy consistent with metastatic disease. Also demonstrates a large central liver mass consistent with metastatic disease. A large amount of soft tissue density in the pelvis adjacent to his anastomosis which may also represent malignancy. There are pockets of air within these masses that coincide with the patient's external fistulous openings. Surgery Consult: A/P - Problem (1) Acute congestive heart failure Current Visit: No Code(s): I50.9 - HEART FAILURE, UNSPECIFIED Status: Acute Qualifiers: Heart failure type: systolic Qualified Code(s): I50.21 - Acute systolic (congestive) heart failure (2) Rectal cancer Current Visit: Yes Code(s): C20 - MALIGNANT NEOPLASM OF RECTUM Status: Acute (3) Diabetes mellitus type 2 in nonobese Current Visit: No Code(s): E11.9 - TYPE 2 DIABETES MELLITUS WITHOUT COMPLICATIONS Status: Chronic - Plan Plan: 59-year-old male with what appears to be stage IV rectal cancer, fecal incontinence, and multiple, complex colocutaneous fistula. A lengthy discussion was had with the patient and his about his management options. He is agreed to proceed with creation of a diverting ostomy to improve his quality of life and to divert the fecal stream from his fistula. The relative risks and benefits of this procedure were discussed in detail with the patient, specifically addressing the risk of bleeding, infection, damage to adjacent structures, ostomy failure, and the need for additional procedures. Informed consent was obtained. Surgery tentatively scheduled for December 10, 2019 Ischemic cardiomyopathy/congestive heart failure: The patient follows with ca rdiology (Dr. Pierre) and reports that his latest ejection fraction is 40%. Request cardiac clearance prior to any surgical intervention. Diabetes mellitus: Per hospitalist service Attention: Discussed with urology. Will place Casanova catheter in preparation for surgery to drain. Plan to discontinue Casanova catheter given the patient is asymptomatic and feels that he is able to urinate normally. Metastatic rectal cancer: Discussed with oncology. Will evaluate as an inpatient to discuss palliative chemotherapy options.
[2019-12-08] MEDS ORDERED: Iopamidol-370 76% 500 ML 1 ML ONE (15:36)
[2019-12-08] MEDS ORDERED: Senokot S 8.6-50 MG TAB PO PRN (15:46)
[2019-12-08] MEDS ORDERED: Ondansetron PF 4 MG/2 ML Vial IVP PRN (15:46)
[2019-12-08 15:54] LABS: Bilirubin Negative (Negative); Blood, Urine Negative (Negative); Clarity Clear (Clear); Glucose, Urine (Dipstick) Greater than 1000 mg/dL (Negative); Ketone, Urine 100 mg/dL (Negative); Leukocyte Negative Leu/uL (Negative); Nitrite Negative (Negative); Protein, Urine (Dipstick) Negative (Neg-Trace); Urobilinogen Normal mg/dL (Less than 2); pH, Urine 5.5 (5.0-9.0)
[2019-12-08 15:55] LABS: Specific Gravity, Urine 1.017 (1.002-1.036)
--- NOTE | 2019-12-08 16:03 | RAD ---
Chest AP view INDICATION: History of both on the right buttock and chest pain COMPARISON: Prior exam dated March 31, 2019 FINDINGS: Lungs: The lungs are clear Cardiac silhouette: Stable mild cardiomegaly Pulmonary vasculature: Normal Pleural spaces: No pleural effusion or pneumothorax is demonstrated. Upper abdomen: No abnormality seen. Osseous structures: No acute osseous abnormality. Additional findings: None. IMPRESSION: No acute cardiopulmonary abnormality.
[2019-12-08 17:46] VITALS: BMI 25.1
[2019-12-08] MEDS: Morphine 4 MG/ML VIAL SLOW IVP PRN (18:12)
[2019-12-08] MEDS: Acetaminophen 325 MG TAB PO PRN (18:13)
[2019-12-08] MEDS: Piperacillin/Tazobactam 3.375 GM in Sodium Chloride 0.9% 100 ML IVPB SCH ×2 (18:15→23:57)
[2019-12-08] MEDS ORDERED: diphenhydrAMINE 50 MG/ML VIAL IVP SCH (20:00)
[2019-12-08] MEDS: Famotidine 20 MG TAB PO SCH (20:32)
--- NOTE | 2019-12-08 21:12 | HP ---
CHIEF COMPLAINT: Rectal pain. HISTORY OF PRESENT ILLNESS: The patient is a 59-year-old male with a history of nonischemic cardiomyopathy, rectal cancer diagnosed in [id number], underwent chemotherapy and radiation, who presents to the hospital with complaints of rectal pain going on, worsening for the past 2 or 3 days. The patient states that he recently got back from [place] about last week Monday. However, he has been on antibiotics for the past four months without any improvement. He came back to the hospital today because he has been having worsening pain, which has not been improving with ibuprofen and Tylenol. He does complain of generalized weakness. He does have a history of rectal cancer, which was treated with surgery, radiation, and chemotherapy. I did review his records and upon finding out in March of 2019, he did have a liver mass, for which the patient never followed through. PAST MEDICAL HISTORY: He has a history of hypertension, rectal cancer, and nonischemic cardiomyopathy. PAST SURGICAL HISTORY: The patient has had a tonsillectomy and rectal surgery. FAMILY HISTORY: Mother had Alzheimer's. Father had small cell carcinoma of the lung. REVIEW OF SYSTEMS: All negative for the ones mentioned in the HPI. SOCIAL HISTORY: He does not smoke. He drinks alcohol every day with some liquor. No withdrawals noted. No recreational drugs. He is a full code. PHYSICAL EXAMINATION: VITAL SIGNS: As of the following; temperature of 98.1, heart rate 99, respirations 16 to 18, and blood pressure 104/69. GENERAL: He is awake, alert, and oriented x3. Does not appear in distress. CV: S1 and S2 present. No murmurs, rubs, gallops. ABDOMEN: Soft and nontender. Bowel sounds are present x2. EXTREMITIES: No edema. Pedal pulses are present x2. LUNGS: Clear to auscultation. No rhonchi or wheezes noted. RECTAL: He does have significant drainage noted to his rectal area. There is a small open wound in the perineum underneath the scrotum and appears purulent discharge. Also, he does have another opening around his buttock area. LABORATORY RESULTS: As of the following, chest x-ray did not show any acute abnormalities. His urinalysis appears to be stable. He did have a CT of abdomen and pelvis, which indicated right gluteal cellulitis associated with 3.6 cm fluid density, also reflecting a phlegmon, extensive abnormal soft tissue density and extraluminal gas with perirectal and parasacral ischemic fossa region, possible infectious versus neoplastic changes, distended urinary bladder, large left hepatic lobe mass, and pulmonary nodules. Sodium of 139, potassium of 4.1, BUN of 10, and creatinine of 0.83. WBCs of 6.7, hemoglobin of 11.3, hematocrit of 34.8, and platelets of 469. ASSESSMENT AND PLAN: The patient is a very pleasant 59-year-old male, who presents to the hospital with complaints of rectal pain. 1. Rectal pain, most likely secondary to either cellulitis or significant fistula versus neoplastic changes. I was given prophylactic antibiotics for now. Surgery has been consulted for possible OR in the morning. However, they would require clearance. We will get Cardiology to see this patient. 2. Systolic heart failure, nonischemic. The patient's states that he had a repeat echo which indicated a good EF of 40%. He currently does not have a LifeVest nor an automatic implantable cardioverter-defibrillator. We will get Cardiology to clear this patient. We will keep him n.p.o. after midnight. 3. Left hepatic lobe mass. Oncology has been consulted. However, the patient clearly told me that he does not want any sort of chemotherapy. He just wants a diverting colostomy to improve this pain and he is not interested in any other further treatment in regard to his cancer. I did talk to him about palliative care for better pain control. 4. Deep venous thrombosis prophylaxis. We will put patient on subcu heparin. Job ID: [id number]
[2019-12-09] MEDS: Acetaminophen 325 MG TAB PO PRN ×3 (01:06→15:21)
[2019-12-09 05:24] LABS: #Eosinphils 0.1 thou/uL (0.0-0.7); #Monocytes 0.8 thou/uL (0.11-0.59); #Neutrophils 4.7 thou/uL (1.40-6.50); %Basophils 0.3 % (0.0-1.0); %Lymphocytes 14.9 % (21.0-51.0); %Neutrophils 70.7 % (42.0-75.0); Hemoglobin 10.8 g/dL (14.0-18.0); Mean Corpuscular Hemoglobin 28.2 pg (27.0-31.0); Mean Corpuscular Volume 87.9 fL (78.0-98.0); Mean Platelet Volume 6.2 fL (7.4-10.4); Platelet Count 492 thou/uL (130-400); RBC Distribution Width 14.8 % (11.5-14.5); Red Blood Cell (RBC) Count 3.85 mill/uL (4.70-6.10); White Blood Cell (WBC) Count 6.7 thou/uL (4.8-10.8)
[2019-12-09] MEDS: Piperacillin/Tazobactam 3.375 GM in Sodium Chloride 0.9% 100 ML IVPB SCH ×4 (05:36→23:19)
[2019-12-09 05:37] LABS: Anion Gap 22 mmol/L (10-20); BUN (Urea Nitrogen) 9 mg/dL (8.4-25.7); Calc. Creatinine Clearance 100 mL/min (70-130); Calcium 8.1 mg/dL (7.8-10.44); Chloride 108 mmol/L (98-107); Estimated GFR-MDRD 90; Glucose 198 mg/dL (70-105); Potassium 4.2 mmol/L (3.5-5.1); Sodium 135 mmol/L (136-145)
[2019-12-09 05:39] LABS: Carbon Dioxide 9 mmol/L (22-29)
[2019-12-09] MEDS ORDERED: Ibuprofen 200 MG TAB PO SCH (06:00)
[2019-12-09] MEDS ORDERED: Sodium Chloride 0.9% 250 ML IV SCH (06:15)
[2019-12-09] MEDS ORDERED: Sodium Bicarbonate Tab 325 MG TAB PO SCH (09:00)
[2019-12-09 09:04] LABS: Phosphorus 3.6 mg/dL (2.3-4.7)
[2019-12-09 09:05] LABS: Anion Gap 22 mmol/L (10-20); BUN (Urea Nitrogen) 8 mg/dL (8.4-25.7); Calc. Creatinine Clearance 97 mL/min (70-130); Calcium 8.1 mg/dL (7.8-10.44); Carbon Dioxide 12 mmol/L (22-29); Chloride 108 mmol/L (98-107); Estimated GFR-MDRD 87; Glucose 181 mg/dL (70-105); Magnesium 1.9 mg/dL (1.6-2.6); Potassium 4.2 mmol/L (3.5-5.1); Sodium 138 mmol/L (136-145)
--- NOTE | 2019-12-09 09:50 | PDOC.BPN ---
- Brief Progress Note Encounter Date: 12/09/19 Encounter Time: 09:48 Doing. pain well controlled with current regimen. Tolerating regular diet, without nausea or vomiting. Continues with incontinence ambulating independently. EXAM: VS: T 98.9 HR 75 BP 88/53 RR 18 SpO2 [ ] General: Alert and oriented, no acute distress, resting comfortably Pulmonary: No dyspnea or difficulty breathing Abdomen: Soft, non-distended. Nontender. Stable fistula CV: Regular rate and rhythm, palpable distal pulses Extremities: No edema I/O: [ ] oral intake [ ] [facility] LAB[facility]ATORY / IMAGING: White blood cell count 6.7. Hemoglobin 10.8 PLAN: 59-year-old male with what appears to be stage IV rectal cancer, fecal incontinence, and multiple, complex colocutaneous fistula. A lengthy discussion was had with the patient and his about his management options. He is agreed to proceed with creation of a diverting ostomy to improve his quality of life and to divert the fecal stream from his fistula. The relative risks and benefits of this procedure were discussed in detail with the patient, specifically addressing the risk of bleeding, infection, damage to adjacent structures, ostomy failure, and the need for additional procedures. Informed consent was obtained. Surgery tentatively scheduled for December 10, 2019 Ischemic cardiomyopathy/congestive heart failure: The patient follows with cardiology (Dr. Pierre) and reports that his latest ejection fraction is 40%. Discussed with Dr. Pierre this morning. He will see the patient today. Reports that the patient is likely to be low to intermediate risk. Diabetes mellitus: Per hospitalist service Urinary retention: Casanova catheter placed Metastatic rectal cancer: Discussed with oncology. Will evaluate as an inpatient to discuss palliative chemotherapy options. Discussed with hospitalist team. Recommended discontinuation of antibiotics. N.p.o. after midnight
[2019-12-09] MEDS: Famotidine 20 MG TAB PO SCH ×2 (09:53→21:32)
[2019-12-09] MEDS ORDERED: Sodium Bicarbonate 150 MEQ in Dextrose 5% in Water 1,000 ML IV SCH (10:00)
[2019-12-09 10:06] LABS: Actual Bicarbonate (HCO3a) 13.6 mEq/L (22-28); Base Excess (BEa) -11.3 mEq/L (-2.0 to +3.0); CO2 Tension 27.6 mmHg (35.0-45.0); Calcium, Ionized (arterial) 1.21 mmol/L (1.12-1.30); Carboxyhemoglobin (COHb) 0.9 gm% (0.0-3.0); Hemoglobin (Hb) 10.8 g/dL (14.0-18.0); O2 Tension (PaO2), arterial 94.5 mmHg (80.0-100.0); Potassium - ABG Lab 4.22 mmol/L (3.70-5.30); pH, Arterial 7.31 (7.35-7.45)
[2019-12-09 10:07] LABS: Puncture Site LRA
[2019-12-09] MEDS ORDERED: Dextrose 5% in Water 1,000 ML IV PRN (10:52)
[2019-12-09] MEDS ORDERED: Dextrose 50% Abboject 50 ML SYRINGE SLOW IVP PRN (10:52)
[2019-12-09] MEDS ORDERED: NPH, Human Insulin Isophane 300 UNIT/3 ML VIAL SC SCH ×3 (11:00→21:30)
[2019-12-09] MEDS ORDERED: D5 1/2 NS w/20 mEq KCL 1,000 ML IV SCH (11:00)
[2019-12-09] MEDS ORDERED: Magnesium Sulfate 2 GM in Sodium Chloride 0.9% 100 ML IVPB SCH (11:00)
[2019-12-09] MEDS ORDERED: Magnesium 2 GM/50 ML 2 GM in Premix Bag 1 BAG IVPB SCH (11:15)
[2019-12-09] MEDS: Insulin Regular 300 UNITS/3 ML VIAL SC PRN ×3 (11:27→21:33)
--- NOTE | 2019-12-09 12:55 | PDOC.HOSPP ---
- Subjective Encounter Date: 12/09/19 Encounter Time: 11:30 Subjective: Patient seen and examined for rectal pain. Pain slightly better. Mild nausea without any vomiting. Denies any fever or chills. - Objective Vital Signs & Weight: Vital Signs (12 hours) Temp Pulse Resp BP BP Pulse Ox 12/09/19 11:18 98.2 F 77 16 88/53 L 97 12/09/19 07:13 98.0 F 77 16 89/49 L 98 12/09/19 05:04 75 88/53 L 12/09/19 04:57 98.9 F 80 18 89/49 L 96 12/09/19 01:00 85 87/52 L 88/55 L Weight Weight 169 lb 15.975 oz I&O: 12/08/19 12/09/19 12/10/19 06:59 06:59 06:59 Intake Total 200 450 Output Total 2450 Balance -2250 450 Result Diagrams: 12/09/19 05:05 12/09/19 08:05 Additional Labs: Accuchecks 12/09/19 11:18 POC Glucose 213 H Abnormal Lab Results - Last 48 hrs 12/08/19 09:50: Carbon Dioxide 18 L, Albumin 3.0 L, Albumin/Globulin Ratio 1.0 L 12/08/19 09:50: RBC 4.00 L, Hgb 11.3 L, Hct 34.8 L, RDW 14.8 H, Plt Count 469 H, MPV 6.2 L, Neutrophils % 77.8 H, Lymphocytes % 11.2 L, Lymphocytes # 0.8 L, Monocytes # 0.6 H 12/08/19 15:28: Urine Glucose (UA) Greater than 1000 A, Urine Ketones 100 A 12/09/19 05:05: Sodium 135 L, Chloride 108 H, Carbon Dioxide 9 L*, Anion Gap 22 H 12/09/19 05:05: RBC 3.85 L, Hgb 10.8 L, Hct 33.9 L, RDW 14.8 H, Plt Count 492 H, MPV 6.2 L, Lymphocytes % 14.9 L, Monocytes % 12.0 H, Lymphocytes # 1.0 L, Monocytes # 0.8 H 12/09/19 08:05: Chloride 108 H, Carbon Dioxide 12 L, Anion Gap 22 H, BUN 8 L 12/09/19 08:05: B-Hydroxybutyrate 6.53 H 12/09/19 09:00: Bicarbonate Actual 13.6 L, ABG pH 7.31 L, ABG pCO2 27.6 L, ABG O2 Content 14.7 L, ABG Base Excess -11.3 L, ABG Hematocrit 32.0 L, ABG Hemoglobin 10.8 L, ABG Deoxyhemoglobin 3.0 H, Chloride 109 H Microbiology - Entire Visit 12/08/19 15:28 Urine logan catheter Urine Culture - Preliminary NO GROWTH AT 24 HOURS 12/08/19 09:50 Venous blood - Left Arm Blood Culture - Preliminary Specimen has been received and culture in progress. No Growth to date. 12/08/19 09:50 Venous blood - Right Arm Blood Culture - Preliminary Specimen has been received and culture in progress. No Growth to date. Radiology Reviewed by me: Yes (CT abdomenright gluteal cellulitis) Hospitalist ROS - Review of Systems Respiratory: denies: cough, dry, shortness of breath, hemoptysis, SOB with excertion, pleuritic pain, sputum, wheezing, other Cardiovascular: denies: chest pain, palpitations, orthopnea, paroxysmal noc. dyspnea, edema, light headedness, other - Medication Medications: Active Medications Generic Name Dose Route Start Last Admin Trade Name Freq PRN Reason Stop Dose Admin Acetaminophen 650 mg 12/08/19 15:46 12/09/19 09:55 Acetaminophen 325 Mg Tab PO 650 mg Q8H PRN Administration Headache/Fever/Mild Pain (1-3) Famotidine 20 mg 12/08/19 21:00 12/09/19 09:53 Famotidine 20 Mg Tab PO 20 mg BID GUICHO Administration Piperacillin Sod/Tazobactam 100 mls @ 200 mls/hr 12/08/19 18:00 12/09/19 11:23 Sod 3.375 gm/ Sodium Chloride IVPB 100 mls Q6HR GUICHO Administration Potassium Chloride/Dextrose/Sod Cl 1,000 mls @ 0 mls/hr 12/09/19 11:00 12/09/19 11:23 D5 1/2 Ns W/20 Meq Kcl IV 1,000 mls .Q0M GUICHO Administration As Directed Insulin Human Regular 0 units 12/09/19 10:52 12/09/19 11:27 Insulin Regular 300 Units/3 Ml Vial SC 4 unit .MODERATE SLIDING SC PRN Administration Moderate Correctional Scale Morphine Sulfate 4 mg 12/08/19 15:48 12/08/19 18:12 Morphine 4 Mg/Ml Vial SLOW IVP 4 mg Q4H PRN Administration Moderate Pain (4-6) - Exam General Appearance: NAD Neck: supple, no JVD Heart: RRR, no gallops Respiratory: no wheezes, no ronchi Gastrointestinal: non-tender, non-distended, normal bowel sounds Extremities: no cyanosis Neurological: no new deficit Psychiatric: normal affect, A&O x 3 Hosp A/P - Plan DVT proph w/SCDs Right gluteal cellulitis with suspected abscess/complex fistulous causing rectal pain Diabetic ketoacidosis with bicarbonate of 9 and ketones of 6.53 Chronic nonischemic systolic heart failure compensated Urinary retention requiring Logan catheter placement Metastatic rectal cancer Pulmonary nodules/left hepatic lobe massprimary care physician advised to follow Chronic anemia suspected due to nutritional deficiency Hyponatremia Hypomagnesemia Plan: General surgery input appreciated. We will start him on IV fluids with dextrose with every 4 hours Accu-Cheks. Will also add NPH 10 units 1 time. Moderate sliding scale. Replace magnesium. Recheck basic metabolic profile later today. A.m. labs. Continue IV Zosyn for cellulitis. DVT prophylaxis. Monitor for volume overload. Continue other medications as above
[2019-12-09 13:01] LABS: SARS-CoV-2 MS2 Positive; SARS-CoV-2 N Gene Negative; SARS-CoV-2 S Gene Negative; SARS-CoV-2 by NAA Not Detected (NotDetected); SARS-CoV-2 orf1ab Negative
--- NOTE | 2019-12-09 15:09 | CON ---
DATE OF CONSULTATION: REASON FOR CONSULTATION: Metastatic colorectal cancer. HISTORY OF PRESENT ILLNESS: Mr. Cardenas is a 59-year-old gentleman with past medical history of rectal cancer in 2013. He underwent 6 weeks of radiation with infusional 5-FU, had what sounds like a primary anastomosis and then underwent 2 out of 12 cycles of adjuvant chemotherapy. He stopped secondary to cold sensitivity. This is in [place], [place]. He did not follow up with Oncology nor GI. He was seen by myself in March 2019 when he was admitted for cardiomyopathy. His EF was 15% at that time. He had a CT scan, which showed bilateral pulmonary nodules and largest measuring 1.2 cm. He had enlarged right hilar lymph nodes. He had a 6.4 x 6.6 x 7.2 lesion in the left lobe of the liver. He was adamant that he was not interested in a biopsy or chemotherapy. He was to follow up with his primary care. He returns again for admission with rectal pain. He had a repeat CT scan, which showed the lesion in the left hepatic lobe measuring 11.6 x 8.5 cm. His nodule in the right inferior hilum now measured 2.4. He had abnormal soft tissue density and gas in the perirectal area. He was seen by Surgery. The plan is for diverting ostomy. The patient is resting comfortably at bedside with his present. He has no complaints at this time. PAST MEDICAL HISTORY: 1. Rectal cancer in 2014. 2. Hypertension. 3. Cardiomyopathy. 4. History of DVT. 5. Diabetes. PAST SURGICAL HISTORY: 1. Looks like possible primary anastomosis. 2. Tonsillectomy. ALLERGIES: NO KNOWN DRUG ALLERGIES. HOME MEDICATIONS: 1. Carvedilol. 2. Entresto. 3. Farxiga. 4. Glucophage. 5. Spironolactone. 6. Lasix. 7. Glucotrol. FAMILY HISTORY: Father had small-cell carcinoma of the lung. SOCIAL HISTORY: . Daily drinker. No alcohol or illicit drug use. REVIEW OF SYSTEMS: A 12-point review of systems is negative except for noted in HPI. PHYSICAL EXAMINATION: VITAL SIGNS: Temperature is 98.2, pulse is 77, respiratory rate 16, BP is 88/53. He is 97% on room air. GENERAL: A well-developed, well-nourished male, in no acute distress. HEENT: Normocephalic, atraumatic. Pupils are equal and reactive to light. NECK: Supple. CV: Regular rate and rhythm. LUNGS: Clear anterior. ABDOMEN: Soft. He has positive bowel sounds. EXTREMITIES: No clubbing or cyanosis. NEUROLOGICAL: Nonfocal. PERTINENT LABORATORY DATA AND X-RAYS: Current WBCs 6.7, hemoglobin 10.8, hematocrit 33.9, platelet count 492,000, 70% neutrophils, 15% lymphs. . Sodium is 138, potassium 4.2, chloride 108, CO2 is 12, BUN is 8, creatinine 0.89, calcium 8.1, bilirubin is 0.2, AST 7, ALT is 11, alkaline phosphatase is 90, serum total protein is 6, albumin 3, globulin 3. COVID PCR negative. Radiology per history of present illness. ASSESSMENT: 1. Probable recurrent metastatic rectal cancer. 2. Colorectal fistula. 3. History of cardiomyopathy. DISCUSSION: The patient is planned for diverting ostomy tomorrow. We discussed biopsy and potential treatments. He is once again adamant that he is not interested in any further workup regarding his cancer. He states he will not be taking any chemotherapy despite advances in targeted therapy over the last 3 years. He was provided our clinic information if he should choose to pursue any treatment he would give us a call. Thank you for the consult. Job ID: [id number] SHAQ
--- NOTE | 2019-12-09 15:36 | CON ---
DATE OF CONSULTATION: 12/09/2019 REASON FOR CONSULTATION: Preoperative evaluation. HISTORY OF PRESENT ILLNESS: Mr. David Cardenas is a 59-year-old gentleman with nonischemic cardiomyopathy, who has stage 4 rectal cancer, fecal incontinence, and multiple complex colocutaneous fistula. The patient is scheduled to create a diverting colostomy to improve his quality of life to divert the fecal stream from his fistula. The patient has a history of a nonischemic cardiomyopathy. He underwent evaluation this year in March. Echocardiogram revealed ejection fraction 15% to 20%. Cardiac catheterization revealed normal coronary arteries, ejection fraction 20%. He has been doing well from a cardiac standpoint. He has no chest pain or pressure. No shortness of breath. MEDICATIONS: Listed at home; 1. Entresto 24/26 twice a day. 2. Carvedilol 12.5 mg twice a day. 3. Spironolactone. 4. Farxiga. 5. Glipizide. 6. Furosemide. ALLERGIES: NONE KNOWN. SOCIAL HISTORY: He states he drinks alcohol every day. No smoking. PHYSICAL EXAMINATION: GENERAL: This is a pleasant, middle-aged gentleman, in no distress. VITAL SIGNS: Blood pressure most recently 88/53 and pulse 73 and regular. LUNGS: Clear. CARDIAC: Normal S1 and normal S2. No murmur, rub, or gallop. ABDOMEN: Soft and nontender. EXTREMITIES: Warm and dry. No clubbing. No cyanosis. There is no edema. DIAGNOSTIC STUDIES: Chest x-ray shows cardiomegaly, but clear lung chen. ASSESSMENT: 1. Congestive heart failure systolic chronic. 2. Stage 4 rectal cancer, schedule for diverting colostomy for improved quality of life. 3. Relatively low blood pressure. 4. Nonischemic cardiomyopathy. PLAN: 1. Agree withholding Entresto and carvedilol at the present time. 2. Appropriate to proceed to surgery low to medium risk. He does not have coronary artery disease. He would be at risk of developing some evidence of congestive heart failure. The volume overloaded may potentially need diuretic. If hypotensive, Levophed may be helpful, may depending on how he does intraoperatively, may need to be in the ICU or IMCU postoperatively. Otherwise, should be a reasonable candidate to proceed. We will go ahead and order an EKG. We will follow with you. Job ID: [id number]
--- NOTE | 2019-12-09 17:13 | PDOC.FMACP ---
Advance Care Planning - Problem (1) Palliative care encounter Status: Acute Code(s): Z51.5 - ENCOUNTER FOR PALLIATIVE CARE (2) Rectal cancer Status: Acute Code(s): C20 - MALIGNANT NEOPLASM OF RECTUM (3) Acute congestive heart failure Status: Acute Code(s): I50.9 - HEART FAILURE, UNSPECIFIED Qualifiers: Heart failure type: systolic Qualified Code(s): I50.21 - Acute systolic (congestive) heart failure (4) Liver mass, left lobe Status: Acute Code(s): R16.0 - HEPATOMEGALY, NOT ELSEWHERE CLASSIFIED (5) Diabetes mellitus type 2 in nonobese Status: Chronic Code(s): E11.9 - TYPE 2 DIABETES MELLITUS WITHOUT COMPLICATIONS - Note Participants: patient, family, palliative care Summary: Palliative Care introduced Advanced Care Planning, opportunity to decline. The diagnosis, prognosis and goals of care were discussed. Appropriate forms and documentation to accomplish the goals of care were discussed. All questions were answered. Elected to transition to DNAR and complete an OOHDNAR. Directives discussed. Palliative Care will follow up 12/09 to further revisit Goal of care. Please also refer to Palliative Care notes in note section. Time Spent (mins): 15
[2019-12-09 17:30] LABS: Anion Gap 18 mmol/L (10-20); BUN (Urea Nitrogen) 8 mg/dL (8.4-25.7); Calc. Creatinine Clearance 91 mL/min (70-130); Calcium 8.2 mg/dL (7.8-10.44); Carbon Dioxide 16 mmol/L (22-29); Chloride 108 mmol/L (98-107); Estimated GFR-MDRD 81; Glucose 352 mg/dL (70-105); Potassium 4.4 mmol/L (3.5-5.1); Sodium 138 mmol/L (136-145)
[2019-12-09] MEDS: HYDROcodone/Acetaminophen 5/325 mg Tablet PO PRN ×2 (17:32→21:32)
--- NOTE | 2019-12-09 21:09 | EKG ---
Test Reason : Blood Pressure : / mmHG Vent. Rate : 087 BPM Atrial Rate : 087 BPM P-R Int : 140 ms QRS Dur : 096 ms QT Int : 404 ms P-R-T Axes : 031 -23 -07 degrees QTc Int : 486 ms Normal sinus rhythm Prolonged QT Abnormal ECG No previous ECGs available Confirmed by Sayra GUZMÁN ([id number]) on 12/09/2019 9:09:29 PM Referred By: KAILYN Confirmed By:Sayra GUZMÁN
[2019-12-09] MEDS ORDERED: diphenhydrAMINE 25 MG CAP PO SCH (22:30)
[2019-12-09] MEDS: D5 1/2 NS w/20 mEq KCL 1,000 ML IV SCH (22:39)
[2019-12-09] MEDS: Morphine 4 MG/ML VIAL SLOW IVP PRN (22:44)
[2019-12-10] MEDS: Insulin Regular 300 UNITS/3 ML VIAL SC PRN ×2 (00:39→20:31)
[2019-12-10] MEDS: Morphine 4 MG/ML VIAL SLOW IVP PRN ×2 (04:40→15:06)
[2019-12-10] MEDS: Piperacillin/Tazobactam 3.375 GM in Sodium Chloride 0.9% 100 ML IVPB SCH ×4 (05:06→20:01)
[2019-12-10 05:09] LABS: #Eosinphils 0.2 thou/uL (0.0-0.7); #Lymphocytes 0.9 thou/uL (1.20-3.40); #Monocytes 0.6 thou/uL (0.11-0.59); #Neutrophils 3.5 thou/uL (1.40-6.50); %Basophils 0.2 % (0.0-1.0); %Eosinophils 4.7 % (0.0-10.0); %Lymphocytes 17.7 % (21.0-51.0); %Monocytes 10.8 % (0.0-10.0); %Neutrophils 66.6 % (42.0-75.0); Hemoglobin 10.3 g/dL (14.0-18.0); Mean Corpuscular HGB CONC 31.8 g/dL (32.0-36.0); Mean Corpuscular Hemoglobin 27.7 pg (27.0-31.0); Mean Corpuscular Volume 87.1 fL (78.0-98.0); Mean Platelet Volume 5.7 fL (7.4-10.4); Platelet Count 478 thou/uL (130-400); RBC Distribution Width 14.8 % (11.5-14.5); Red Blood Cell (RBC) Count 3.72 mill/uL (4.70-6.10); White Blood Cell (WBC) Count 5.2 thou/uL (4.8-10.8)
[2019-12-10 05:29] LABS: Phosphorus 2.5 mg/dL (2.3-4.7)
[2019-12-10 05:33] LABS: ALT (SGPT) Less than 7 U/L (8-55); AST (SGOT) 7 U/L (5-34); Albumin 2.6 g/dL (3.5-5.0); Alkaline Phosphatase 76 U/L (40-110); Anion Gap 12 mmol/L (10-20); BUN (Urea Nitrogen) 7 mg/dL (8.4-25.7); Bilirubin, Total Less than 0.2 mg/dL (0.2-1.2); Calc. Creatinine Clearance 122 mL/min (70-130); Calcium 7.9 mg/dL (7.8-10.44); Carbon Dioxide 22 mmol/L (22-29); Chloride 108 mmol/L (98-107); Estimated GFR-MDRD Greater than 90; Globulin 2.7 g/dL (2.4-3.5); Glucose 184 mg/dL (70-105); Potassium 4.1 mmol/L (3.5-5.1); Protein, Total 5.3 g/dL (6.0-8.3); Sodium 138 mmol/L (136-145)
[2019-12-10] MEDS ORDERED: Bupivacaine/Epinephrine 0.25% 30 ML VIAL ONE (07:22)
[2019-12-10] MEDS ORDERED: Midazolam HCl 2 mg/2 ml Vial ONE (07:36)
[2019-12-10] MEDS ORDERED: Phenylephrine 10 MG/ML VIAL ONE (07:36)
[2019-12-10] MEDS ORDERED: Fentanyl 250 MCG/5 ML VIAL ONE (07:36)
[2019-12-10] MEDS ORDERED: Rocuronium Bromide 10 MG/ML (10ML VIAL) ONE (09:04)
[2019-12-10] MEDS ORDERED: Vecuronium 10 MG VIAL ONE (09:04)
[2019-12-10] MEDS ORDERED: Esmolol 100 MG/10 ML VIAL ONE (09:04)
[2019-12-10] MEDS ORDERED: PROPOFOL 200 MG/20 ML VIAL ONE (09:04)
[2019-12-10] MEDS ORDERED: Lidocaine 1% PF 5 ML VIAL ONE (09:04)
[2019-12-10] MEDS ORDERED: PHENYLEPHRINE-NS 100 MCG/ML 10 ML SYRINGE ONE (09:04)
[2019-12-10] MEDS ORDERED: EPHEDRINE 25 MG/5 ML SYRINGE ONE (09:04)
[2019-12-10] MEDS ORDERED: Glycopyrrolate 0.2 MG/ML 5 ML SYRINGE ONE (09:04)
[2019-12-10] MEDS: Famotidine 20 MG TAB PO SCH ×2 (09:47→20:00)
[2019-12-10] MEDS ORDERED: HYDROmorphone 2 MG/ML VIAL ONE (11:43)
--- NOTE | 2019-12-10 12:34 | PDOC.OP ---
Operative Note - Operative Note Operative Note: DATE OF SURGERY: December 10, 2019 SURGEON: Jonathon Lopes MD PREOPERATIVE DIAGNOSIS: Stage IV rectal cancer Complex colocutaneous fistula (multiple) POSTOPERATIVE DIAGNOSIS: Stage IV rectal cancer Complex colocutaneous fistula (multiple) PROCEDURE: 1. Laparoscopic colostomy creation 2. Laparoscopic liver biopsy 3. Proctoscopy 4. Fistulotomy x4 5. Incision and drainage of gluteal abscess INDICATIONS: 59-year-old male with stage IV rectal cancer. He underwent proctectomy with low coloanal anastomosis in 2014. Afterwards, he began developing colocutaneous fistula. He was evaluated in the emergency department for gluteal pain and found to have multiple complex colocutaneous fistula. CT of the abdomen and pelvis demonstrated that these came from the region of his coloanal anastomosis. PROCEDURE IN DETAIL: The patient was brought to the operating room and positioned supine on the operating room table. After induction of general, endotracheal anesthesia, the patient was prepared and draped in the usual fashion. Prior to beginning the procedure, a complete timeout was performed with all members of the operative team being present and in agreement. Access to the abdomen was obtained in the right upper quadrant using an optical trocar under direct visualization. The abdomen was insufflated and additional trocars placed under direct visualization. The abdominal cavity was examined, noting the large hepatic mass seen on computed tomography. There were moderate adhesions between the wall of the abdomen and the viscera. These were taken down carefully with sharp dissection. The left colon was retracted and the peritoneum divided. The interface from the patient's previous operation was located and the colon mobilized using blunt dissection and minimal application of a vessel sealing device. Dissection continued until the colon was freely mobile from the splenic flexure to the sacral prominence. This mobility allowed the colon to be placed at the premarked site for his colostomy. A 12 mm trocar was placed in the colon grasped. The abdomen was desufflated and the 12 mm trocar site incision extended. The subtenons tissues were divided with electrocautery. The anterior fascia was divided transversely. The abdominal rectus was split bluntly. The posterior fascia was divided longitudinally. This was dilated until a loop of colon could be brought through the defect. The abdomen was insufflated and correct position of the colon was verified. A laparoscopic liver biopsy was performed through the right upper quadrant trocar site. A core needle biopsy instrument was used to take multiple biopsies. The ostomy was matured in a Mirta fashion using 3-0 Vicryl sutures. A red rubber catheter was placed through the mesentery to prevent retraction. An ostomy appliance was applied. The abdomen was reinsufflated and examined. The 12 mm trocar sites were closed with 0Vicryl ties utilizing a suture passer. The skin was closed with 4-0 Monocryl and dressed with skin adhesive dressing. At the conclusion of the abdominal portion of the case, all sponge and instrument counts were correct. The patient was then transitioned to a lithotomy position. The scrotum, perineum, and buttocks were prepared and draped in the usual fashion. Proctoscopy was performed, which demonstrated a circumferential lesion at what appeared to be his previous anastomotic site. This was unable to be traversed with the proctoscope. There seemed to be evidence of the fistula origin at the 9 o'clock position. Multiple attempts were made to traverse the fistulous tract from multiple openings within the buttocks, but this was unable to be accomplished safely. There were 4 fistula present. One exited the perineum, there was a distal posterior fistula, and 2 fistulous openings at the 9 o'clock position at the gluteal cleft. Fistulotomy's were performed on all 4 fistula a in order to open the fistulous tract, without unneeded tissue damage or encroachment upon the anal sphincters. Curettage was performed on all 4 tracts. There was a gluteal abscess noted in the right buttock. This was incised sharply and probed gently to break up any loculations. Seropurulent discharge was noted. 1/4 inch [place] was placed through a counterincision for drainage. The perineal fistulotomy tract was packed with course gauze. Quarter inch Nimesh's were used to drain the 2 fistula at the 9 o'clock position. A 1/2 inch [place] was used to drain the dominant fistula tract that was in a posterior position. ESTIMATED BLOOD LOSS: Minimal COMPLICATIONS: None INTRAOPERATIVE BLOOD TRANSFUSIONS: None GRAFTS / IMPLANTS: None SPECIMENS: Liver biopsies DISPOSITION: The patient was transported to the postoperative recovery unit in good conditions to be to be returned to the floor when criteria met.
[2019-12-10] MEDS ORDERED: Fentanyl 100 MCG/2 ML VIAL ONE (12:48)
--- NOTE | 2019-12-10 13:49 | PDOC.HOSPP ---
- Subjective Encounter Date: 12/10/19 Encounter Time: 13:00 Subjective: is in pacu, post op laparoscopic colostomy wakes up easily, not in distress - Objective Vital Signs & Weight: Vital Signs (12 hours) Temp Pulse Resp BP Pulse Ox 12/10/19 04:17 98.3 F 86 16 111/72 96 Weight Weight 169 lb 15.975 oz I&O: 12/09/19 12/10/19 12/11/19 06:59 06:59 06:59 Intake Total 200 3400 Output Total 2450 3750 Balance -2250 -350 Result Diagrams: 12/10/19 04:51 12/10/19 04:51 Additional Labs: Accuchecks 12/10/19 12/10/19 12/09/19 04:22 00:21 20:52 POC Glucose 166 H 202 H 295 H 12/09/19 16:15 POC Glucose 274 H Hospitalist ROS - Medication Medications: Active Medications Generic Name Dose Route Start Last Admin Trade Name Freq PRN Reason Stop Dose Admin Acetaminophen 650 mg 12/08/19 15:46 12/09/19 15:21 Acetaminophen 325 Mg Tab PO 650 mg Q8H PRN Administration Headache/Fever/Mild Pain (1-3) Famotidine 20 mg 12/08/19 21:00 12/10/19 09:47 Famotidine 20 Mg Tab PO Not Given BID GUICHO Piperacillin Sod/Tazobactam 100 mls @ 200 mls/hr 12/08/19 18:00 12/10/19 05:06 Sod 3.375 gm/ Sodium Chloride IVPB 100 mls Q6HR GUICHO Administration Potassium Chloride/Dextrose/Sod Cl 1,000 mls @ 75 mls/hr 12/09/19 21:30 12/09/19 22:39 D5 1/2 Ns W/20 Meq Kcl IV 1,000 mls .[id number] GUICHO Administration Insulin Human Regular 0 units 12/09/19 10:52 12/09/19 17:31 Insulin Regular 300 Units/3 Ml Vial SC 6 unit .MODERATE SLIDING SC PRN Administration Moderate Correctional Scale Insulin Human Regular 0 units 12/09/19 10:52 12/10/19 00:39 Insulin Regular 300 Units/3 Ml Vial SC 2 unit .BEDTIME SLIDING SC PRN Administration Bedtime Correctional Scale Morphine Sulfate 4 mg 12/08/19 15:48 12/10/19 04:40 Morphine 4 Mg/Ml Vial SLOW IVP 4 mg Q4H PRN Administration Moderate Pain (4-6) Sodium Chloride 10 ml 12/09/19 21:00 12/10/19 09:47 Flush - Normal Saline 10 Ml Syringe IVF Not Given Q12HR GUICHO - Exam Eye: PERRL, anicteric sclera ENT: no oropharyngeal lesions, dry oral mucosa Neck: supple, no JVD Heart: RRR, no murmur Respiratory: no wheezes, no rales Gastrointestinal: soft Gastrointestinal - other findings: colostomy+ Extremities: no cyanosis, no edema Neurological: cranial nerve grossly intact, no focal deficits Hosp A/P (1) Colocutaneous fistula Code(s): K63.2 - FISTULA OF INTESTINE Status: Acute (2) Cardiomyopathy Code(s): I42.9 - CARDIOMYOPATHY, UNSPECIFIED Status: Chronic Qualifiers: Cardiomyopathy type: unspecified Qualified Code(s): I42.9 - Cardiomyopathy, unspecified (3) Urinary retention Code(s): R33.9 - RETENTION OF URINE, UNSPECIFIED Status: Acute (4) Chronic anemia Code(s): D64.9 - ANEMIA, UNSPECIFIED Status: Chronic (5) Moderate protein-calorie malnutrition Code(s): E44.0 - MODERATE PROTEIN-CALORIE MALNUTRITION Status: Chronic (6) Rectal cancer Code(s): C20 - MALIGNANT NEOPLASM OF RECTUM Status: Chronic (7) Liver mass, left lobe Code(s): R16.0 - HEPATOMEGALY, NOT ELSEWHERE CLASSIFIED Status: Chronic (8) Diabetes mellitus type 2 in nonobese Code(s): E11.9 - TYPE 2 DIABETES MELLITUS WITHOUT COMPLICATIONS Status: Chronic - Plan is on iv fluids, zosyn is s/p diverting colostomy with liver mass biopsy, fistulotomy x4, incision and drainage of gluteal abscess 12/10/19 hemostable needs colostomy education to f/u with onc if he wants to pursue chemo/immunotherapy to mobilize later on floor diet per gen surgery advice
[2019-12-10] MEDS ORDERED: HYDROcodone/Acetaminophen 5/325 mg Tablet PO PRN (15:08)
[2019-12-10] MEDS ORDERED: Morphine 2 MG/ML VIAL SLOW IVP PRN (15:09)
[2019-12-10] MEDS ORDERED: Ondansetron PF 4 MG/2 ML Vial IVP PRN (15:11)
[2019-12-10] MEDS ORDERED: Promethazine HCl 25 MG/ML VIAL SLOW IVP PRN (15:12)
[2019-12-10] MEDS: HYDROcodone/Acetaminophen 5/325 mg Tablet PO PRN ×2 (15:19→20:00)
[2019-12-10] MEDS: Enoxaparin Sodium 40 MG/0.4 ML SYRINGE SC SCH (16:40)
[2019-12-10] MEDS: D5 1/2 NS w/20 mEq KCL 1,000 ML IV SCH ×2 (16:40→20:02)
[2019-12-10] MEDS: Ketorolac Tromethamine 30 MG/ML VIAL IVP SCH (18:32)
[2019-12-11] MEDS: Ketorolac Tromethamine 30 MG/ML VIAL IVP SCH ×4 (00:41→18:27)
[2019-12-11] MEDS: Piperacillin/Tazobactam 3.375 GM in Sodium Chloride 0.9% 100 ML IVPB SCH ×4 (03:42→20:30)
[2019-12-11] MEDS: Insulin Regular 300 UNITS/3 ML VIAL SC PRN ×3 (03:56→20:30)
[2019-12-11 05:59] LABS: #Eosinphils 0.3 thou/uL (0.0-0.7); #Lymphocytes 0.6 thou/uL (1.20-3.40); #Monocytes 0.5 thou/uL (0.11-0.59); %Basophils 0.2 % (0.0-1.0); %Eosinophils 6.4 % (0.0-10.0); %Lymphocytes 14.7 % (21.0-51.0); %Monocytes 10.3 % (0.0-10.0); %Neutrophils 68.4 % (42.0-75.0); Hemoglobin 10.7 g/dL (14.0-18.0); Mean Corpuscular Volume 89.8 fL (78.0-98.0); Mean Platelet Volume 6.5 fL (7.4-10.4); Platelet Count 393 thou/uL (130-400); RBC Distribution Width 14.9 % (11.5-14.5); Red Blood Cell (RBC) Count 3.98 mill/uL (4.70-6.10); White Blood Cell (WBC) Count 4.3 thou/uL (4.8-10.8)
[2019-12-11 06:24] LABS: Anion Gap 17 mmol/L (10-20); BUN (Urea Nitrogen) 5 mg/dL (8.4-25.7); Calc. Creatinine Clearance 128 mL/min (70-130); Calcium 7.8 mg/dL (7.8-10.44); Carbon Dioxide 16 mmol/L (22-29); Chloride 105 mmol/L (98-107); Estimated GFR-MDRD Greater than 90; Glucose 172 mg/dL (70-105); Potassium 4.4 mmol/L (3.5-5.1); Sodium 134 mmol/L (136-145)
[2019-12-11] MEDS: Polyethylene Glycol 3350 17 GM Packet PO SCH (09:04)
[2019-12-11] MEDS: Enoxaparin Sodium 40 MG/0.4 ML SYRINGE SC SCH (09:04)
[2019-12-11] MEDS: Famotidine 20 MG TAB PO SCH ×2 (09:05→20:30)
--- NOTE | 2019-12-11 12:51 | PDOC.HOSPP ---
- Subjective Encounter Date: 12/11/19 Encounter Time: 09:00 Subjective: no nausea or abd pain is tolerating oral diet is amb in room - Objective Vital Signs & Weight: Vital Signs (12 hours) Temp Pulse Resp BP BP Pulse Ox 12/11/19 11:51 97.6 F 104 H 18 121/81 94 L 12/11/19 07:52 98.3 F 89 18 117/72 92 L 12/11/19 03:56 98.2 F 91 16 123/78 95 Weight Weight 169 lb 15.975 oz I&O: 12/10/19 12/11/19 12/12/19 06:59 06:59 06:59 Intake Total 3400 525 1860 Output Total 3750 800 50 Balance -350 -275 1810 Result Diagrams: 12/11/19 04:49 12/11/19 04:49 Additional Labs: Accuchecks 12/11/19 12/11/19 12/11/19 11:50 07:51 03:55 POC Glucose 189 H 175 H 175 H 12/10/19 12/10/19 12/10/19 23:45 20:03 17:11 POC Glucose 193 H 218 H 172 H Hospitalist ROS - Medication Medications: Active Medications Generic Name Dose Route Start Last Admin Trade Name Freq PRN Reason Stop Dose Admin Acetaminophen 650 mg 12/08/19 15:46 12/09/19 15:21 Acetaminophen 325 Mg Tab PO 650 mg Q8H PRN Administration Headache/Fever/Mild Pain (1-3) Hydrocodone Bitart/Acetaminophen 2 tab 12/10/19 15:09 12/10/19 20:00 Hydrocodone/Acetaminophen 5/325 Mg Tablet PO 2 tab Q4H PRN Administration Moderate Pain (4-6) Enoxaparin Sodium 40 mg 12/10/19 09:00 12/11/19 09:04 Enoxaparin Sodium 40 Mg/0.4 Ml Syringe SC 40 mg 0900 GUICHO Administration Famotidine 20 mg 12/08/19 21:00 12/11/19 09:05 Famotidine 20 Mg Tab PO 20 mg BID GUICHO Administration Potassium Chloride/Dextrose/Sod Cl 1,000 mls @ 75 mls/hr 12/09/19 21:30 12/10/19 20:02 D5 1/2 Ns W/20 Meq Kcl IV 1,000 mls .[id number] GUICHO Administration Piperacillin Sod/Tazobactam 100 mls @ 200 mls/hr 12/10/19 15:00 12/11/19 09:04 Sod 3.375 gm/ Sodium Chloride IVPB 100 mls 0300,0900,1500,2100 GUICHO Administration Insulin Human Regular 0 units 12/09/19 10:52 12/11/19 03:56 Insulin Regular 300 Units/3 Ml Vial SC 2 unit .MODERATE SLIDING SC PRN Administration Moderate Correctional Scale Insulin Human Regular 0 units 12/09/19 10:52 12/10/19 20:31 Insulin Regular 300 Units/3 Ml Vial SC 2 unit .BEDTIME SLIDING SC PRN Administration Bedtime Correctional Scale Ketorolac Tromethamine 30 mg 12/10/19 18:00 12/11/19 12:26 Ketorolac Tromethamine 30 Mg/Ml Vial IVP 12/12/19 18:01 30 mg Q6HR GUICHO Administration Morphine Sulfate 4 mg 12/08/19 15:48 12/10/19 15:06 Morphine 4 Mg/Ml Vial SLOW IVP 4 mg Q4H PRN Administration Moderate Pain (4-6) Morphine Sulfate 2 mg 12/10/19 15:09 12/10/19 17:37 Morphine 2 Mg/Ml Vial SLOW IVP 2 mg Q10MIN PRN Administration Severe Pain (7-10) Polyethylene Glycol 17 gm 12/11/19 09:00 12/11/19 09:04 Polyethylene Glycol 3350 17 Gm Packet PO 17 gm DAILY GUICHO Administration Sodium Chloride 10 ml 12/09/19 21:00 12/11/19 09:05 Flush - Normal Saline 10 Ml Syringe IVF Not Given Q12HR GUICHO - Exam General Appearance: awake alert Eye: PERRL, anicteric sclera ENT: no oropharyngeal lesions, moist mucosa Neck: supple, no JVD Heart: RRR, no murmur Respiratory: no wheezes, no rales Gastrointestinal: soft, non-distended, normal bowel sounds Gastrointestinal - other findings: colostomy has liq stool Extremities: no cyanosis, no edema Neurological: cranial nerve grossly intact, no focal deficits Psychiatric: normal affect, A&O x 3 Hosp A/P (1) Colocutaneous fistula Code(s): K63.2 - FISTULA OF INTESTINE Status: Acute (2) Cardiomyopathy Code(s): I42.9 - CARDIOMYOPATHY, UNSPECIFIED Status: Chronic Qualifiers: Cardiomyopathy type: unspecified Qualified Code(s): I42.9 - Cardiomyopathy, unspecified (3) Urinary retention Code(s): R33.9 - RETENTION OF URINE, UNSPECIFIED Status: Acute (4) Chronic anemia Code(s): D64.9 - ANEMIA, UNSPECIFIED Status: Chronic (5) Moderate protein-calorie malnutrition Code(s): E44.0 - MODERATE PROTEIN-CALORIE MALNUTRITION Status: Chronic (6) Rectal cancer Code(s): C20 - MALIGNANT NEOPLASM OF RECTUM Status: Chronic (7) Liver mass, left lobe Code(s): R16.0 - HEPATOMEGALY, NOT ELSEWHERE CLASSIFIED Status: Chronic (8) Diabetes mellitus type 2 in nonobese Code(s): E11.9 - TYPE 2 DIABETES MELLITUS WITHOUT COMPLICATIONS Status: Chronic - Plan is on zosyn is s/p diverting colostomy with liver mass biopsy, fistulotomy x4, incision and drainage of gluteal abscess 12/10/19 hemostable needs colostomy education, informed RN for teaching including wound care. counselled to f/u with onc if he wants to pursue chemo/immunotherapy to mobilize on floor diet per gen surgery advice likely dc plan in am if cleared by .
[2019-12-11] MEDS: HYDROcodone/Acetaminophen 5/325 mg Tablet PO PRN ×2 (15:12→20:32)
[2019-12-11] MEDS: D5 1/2 NS w/20 mEq KCL 1,000 ML IV SCH (15:23)
--- NOTE | 2019-12-11 15:26 | PDOC.BPN ---
- Brief Progress Note Encounter Date: 12/11/19 Encounter Time: 15:24 Doing well s/p laparoscopic colostomy creation, laparoscopic liver biopsy, fistulotomy x4, and gluteal abscess drainage. Postoperative pain well controlled with current regimen. Tolerating liquid diet, without nausea or vomiting. Endorses flatus and small bowel movements. Ambulating independently. EXAM: VS: Afebrile, vital signs stable. Mild tachycardia to 104 General: Alert and oriented, no acute distress, resting comfortably Pulmonary: No dyspnea or difficulty breathing Abdomen: Soft, non-distended, incisions clean, ostomy viable with gas and stool output CV: Regular rate and rhythm, palpable distal pulses Extremities: No edema I/O: Tolerating oral intake 1 void removal of [place] [facility] LABORATORY / IMAGING: Operatory analysis reviewed. White blood cell count 4.3 with normal differential and no bands PLAN: 59-year-old male with stage IV colon cancer complicated by recurrence and complex colocutaneous fistula status post laparoscopic colostomy creation, multiple fistulotomy's, and incision and drainage of buttock abscess Advance to regular diet Plan for discharge home tomorrow morning Patient counseled to take Metamucil to firm to me output
[2019-12-12] MEDS: HYDROcodone/Acetaminophen 5/325 mg Tablet PO PRN ×3 (00:22→11:08)
[2019-12-12] MEDS: Insulin Regular 300 UNITS/3 ML VIAL SC PRN ×3 (00:22→10:59)
[2019-12-12] MEDS: Ketorolac Tromethamine 30 MG/ML VIAL IVP SCH ×3 (00:22→11:07)
[2019-12-12] MEDS: D5 1/2 NS w/20 mEq KCL 1,000 ML IV SCH (00:23)
[2019-12-12] MEDS: Piperacillin/Tazobactam 3.375 GM in Sodium Chloride 0.9% 100 ML IVPB SCH ×2 (03:56→08:20)
[2019-12-12] MEDS ORDERED: metFORMIN 500 MG TAB PO SCH (08:00)
[2019-12-12 08:14] VITALS: BP 125/73; TEMP 97.9
[2019-12-12] MEDS: Famotidine 20 MG TAB PO SCH (08:21)
[2019-12-12] MEDS: Enoxaparin Sodium 40 MG/0.4 ML SYRINGE SC SCH (08:22)
[2019-12-12] MEDS: Polyethylene Glycol 3350 17 GM Packet PO SCH (08:23)
[2019-12-12] MEDS ORDERED: Empagliflozin 25 MG TAB PO SCH (09:00)
--- NOTE | 2019-12-12 18:03 | DIS ---
DATE OF ADMISSION: 12/08/2019 DATE OF DISCHARGE: 12/12/2019 DISCHARGE DISPOSITION: Home. PRIMARY DISCHARGE DIAGNOSES: 1. 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 2. Diabetes mellitus, type 2. 3. Obesity. 4. Cardiomyopathy with systolic dysfunction. 5. Chronic anemia. 6. Moderate protein-calorie malnutrition. 7. Rectal cancer, not on any medication. PROCEDURES DONE DURING HOSPITALIZATION: Chest x-ray done on the day of admission showed no acute cardiopulmonary abnormality. CT of the abdomen and pelvis with IV contrast done showed pulmonary nodule; incompletely characterized large left hepatic lobe mass, similar to prior, suspicious for malignant process; marked distention of the urinary bladder; extensive abnormal soft tissue density and extraluminal gas within the perirectal, presacral, and ischial fossa regions; right gluteal cellulitis and associated 3.6 cm fluid density structure that may reflect phlegmon/developing abscess. The left hepatic lobe mass measured 11.6 x 8.5 cm in the left lobe. This mass was similar when compared to prior CAT scan done on 03/31/2019. The liver biopsy showed mild steatohepatitis. No malignancy was identified. Patient had laparoscopic diverting colostomy, liver biopsy, fistulotomy x4, and incision and drainage of gluteal abscess. All of these procedures were done on December 10, 2019, by Dr. Lopes. Blood cultures x2, no growth. Urine culture, no growth. H and H 10 and 35, platelet count 393; BUN 5, creatinine 0.6, and albumin is 2.6. Carcinoembryonic antigen levels were elevated at 21.32. Blood cultures x2, no growth. Urine culture, no growth. DISCHARGE MEDICATION: 1. Augmentin 875 mg one tablet twice daily for seven days. 2. Metformin 1000 mg twice daily. 3. Farxiga 10 mg daily. 4. Carvedilol 12.5 mg twice daily. 5. Entresto 24/26 mg one tablet twice daily. 6. MiraLAX 17 g daily. 7. Senokot-S 2 tablets twice daily. ALLERGIES: NO KNOWN DRUG ALLERGIES. DISCHARGE PLAN: Patient is to follow up with Dr. Lopes in 1 week. He needs to call his office and set up appointment. Patient needs to follow up with his primary care physician, Dr. Leslie Cid in 1 week. Patient has been strongly counseled to follow up with oncologist. BRIEF COURSE DURING HOSPITALIZATION: Patient initially got admitted on the 07 of December with complaints of rectal area pain. He was found to have had multiple fistulas. Patient has known history of rectal cancer and has been off chemotherapy. He has had consultation with Dr. Lopes. CT of the abdomen and pelvis was obtained. He was taken to OR for diverting colostomy and fistulotomies along with incision and drainage of gluteal abscess done. Postprocedure, his colostomy is working. He also has nonischemic cardiomyopathy with systolic dysfunction. Patient did not want to pursue further chemo or immunotherapy, but he has been counseled to see local oncologist here, who came to evaluate him during his stay here. He is otherwise hemodynamically stable and is wanting to go home. Colostomy education was done by Wound Care and he has also had a video presentation of maintenance of colostomy and changes shown to him. The patient's heart failure medications have been reduced in view of his systolic blood pressures ranging around 90 to 125 during his stay here. He is advised to check his blood pressure and pulse twice daily and record to follow up with his commercial loan assistant. Mr. Cardenas is wanting to go home and has been cleared by General Surgery for discharge. Please note, I have seen and examined the patient on the day of discharge. Job ID: [id number]
--- NOTE | 2019-12-13 20:37 | PQF ---
Dear : Lilia Larson Date 12/13/19 Please exercise your independent, professional judgment in responding to the clarification form. Clinical indicators are provided on the bottom of this form for your review Can you please further clarify if DKA is ruled in or ruled out? DKA [ ] Ruled in diagnosis [ ] Continue to treat [ ] Resolved [ x ] Ruled out diagnosis [ ] Improving [ ] Cannot rule out diagnosis [ ] Other diagnosis [ ] Unable to determine Physician Signature: Date/Time: For continuity of documentation, please document condition throughout progress notes and discharge summary. Thank You. To be completed by CDI/Coding staff for physician review: Present Clinical Indicators - Signs / Symptoms / Labs Results and Location in Medical Record [ x ] Mild nausea without any vomiting Hospitalist PN pg.1 Dr. Germain [ x ] Diabetic ketoacidosis with bicarbonate of 9 and ketones of 6.[address] Germain [ x ] POC Glucose: 213H, 274H, 295H, 202H, 166H, 172H, 218H, 193H, 175H, 189H, 263H, 236H, 221H Laboratory [ x ] Urine ketones 1000 A Urine laboratory [ x ] Urine glucose greater than 1000 A Urine laboratory [ x ] Abnormal CBC labs Hematology Present Risk Factors Results and Location in Medical Record [ x ] Gluteal cellulitis Hospitalist PN pg.2 Dr. Germain [ x ] Systolic CHF compensated Hospitalist PN pg.2 Dr. Germain [ x ] Colon cancer H and P pg.1 [ x ] Obesity DS pg.1 [ x ] Diabetes mellitus type 2 DS pg.1 [ x ] Cardiomyopathy DS pg.1 [ x ] Moderate malnutrition DS pg.1 Present Treatments Results and Location in Medical Record [ x ] IV Fluids MAR [ x ] Glucose monitoring Laboratory [ x ] Glucotrol 30mg PO MAR [ x ] D5 water, sodium bicarbonate 150meq IV MAR [ x ] Regular Insulin SC MAR [ x ] NPH 10 unit SC MAR CDS/Merchandising Specialist Signature: Maycol Hurst Phone #: ext [phone] Date 12/14/19 This is a permanent part of the Medical Record [facility]
== END 2019-12-12 12:38 | disposition home or self-care (01) | DRG 330 ==
LOC: ERS 08:59 → SJJU 15:40 → OBSVTOIN 15:40
PROVIDERS: ADMIT Internal Medicine; ATTEND Internal Medicine
PROC: 0T9B70Z Drainage of Bladder with Drainage Device, Via Natural or Artificial Opening (ICD-10-PCS; 2019-12-08)
PROC: 0D1N4Z4 Bypass Sigmoid Colon to Cutaneous, Percutaneous Endoscopic Approach (ICD-10-PCS; principal; 2019-12-10)
PROC: 0DBQ4ZZ Excision of Anus, Percutaneous Endoscopic Approach (ICD-10-PCS; 2019-12-10)
PROC: 0DBP4ZZ Excision of Rectum, Percutaneous Endoscopic Approach (ICD-10-PCS; 2019-12-10)
PROC: 0FB04ZX Excision of Liver, Percutaneous Endoscopic Approach, Diagnostic (ICD-10-PCS; 2019-12-10)
PROC: 0J9900Z Drainage of Buttock Subcutaneous Tissue and Fascia with Drainage Device, Open Approach (ICD-10-PCS; 2019-12-10)
DX: K63.2 Fistula of intestine (principal); I42.8 Other cardiomyopathies; I50.22 Chronic systolic (congestive) heart failure; L03.317 Cellulitis of buttock; E87.1 Hypo-osmolality and hyponatremia; C19 Malignant neoplasm of rectosigmoid junction; E44.0 Moderate protein-calorie malnutrition; K61.1 Rectal abscess; Z51.5 Encounter for palliative care; Z66 Do not resuscitate; I11.0 Hypertensive heart disease with heart failure; E11.9 Type 2 diabetes mellitus without complications; F17.220 Nicotine dependence, chewing tobacco, uncomplicated; R33.9 Retention of urine, unspecified; E83.42 Hypomagnesemia; D64.9 Anemia, unspecified; K60.4 Rectal fistula; K75.81 Nonalcoholic steatohepatitis (NASH); E66.9 Obesity, unspecified; Z20.828 Contact with and (suspected) exposure to other viral communicable diseases; Z79.84 Long term (current) use of oral hypoglycemic drugs; Z79.899 Other long term (current) drug therapy; Z68.25 Body mass index [BMI] 25.0-25.9, adult
CPT/HCPCS: 36415; 36416; 51702; 71045; 74177; 80048; 80053; 81003; 82010; 82378; 82805; 83605; 83735; 84100; 85025; 87040; 87086; 87635; 88307; 88313; 93005; 93010; 96365; 96366; 96367; 96375; 96376; J0692; J1170; J1200; J1650; J1815; J1885; J2250; J2270; J2370; J2405; J2543; J2704; J3010; J3370; J3475; J3480; J3490; J7070; Q0163; Q9967; U0003

== ENCOUNTER 2020-08-10 12:22 | Inpatient (IN) | payer BC ==
[2020-08-10 13:24] LABS: Hemoglobin 13.9 g/dL (14.0-18.0); Mean Corpuscular HGB CONC 31.2 g/dL (32.0-36.0); Mean Corpuscular Hemoglobin 28.6 pg (27.0-31.0); Mean Corpuscular Volume 91.7 fL (78.0-98.0); Mean Platelet Volume 8.3 fL (7.4-10.4); Platelet Count 318 thou/uL (130-400); RBC Distribution Width 12.7 % (11.5-14.5); Red Blood Cell (RBC) Count 4.86 mill/uL (4.70-6.10); White Blood Cell (WBC) Count 12.8 thou/uL (4.8-10.8)
[2020-08-10 13:43] LABS: Magnesium 2.4 mg/dL (1.6-2.6); Phosphorus 4.9 mg/dL (2.3-4.7)
[2020-08-10 13:50] LABS: Band 34 % (5-11); Hypochromia SLIGHT = 6-15 cells (100X) (0-5/hpf); Lymphocytes 2 % (21-51); MDiff Complete? YES; Monocytes 9 % (0-10); Neutrophil 54 % (42-75); Platelet Morphology Comment Appears Adequate; Polychromasia SLIGHT = 2-3 cells (100X) (0-2/hpf); Reactive Lymphocytes 1 % (0-10)
[2020-08-10 13:50] LABS: SARS-CoV-2 NAA Rapid Test DETECTED (NotDetected)
[2020-08-10 13:59] LABS: Analyzer IN Cardio ER; Base Excess -22.5 mEq/L (-2.0 to +3.0); Calcium, Ionized (venous) 1.07 mmol/L (1.16-1.32); Chloride (VBG) 99 mmol/L (98-106); Hemoglobin (Hb) 14.9 g/dL (13.1-17.2); Potassium (VBG) 5.58 mmol/L (3.70-5.30); Sodium 134.1 mmol/L (133-146)
[2020-08-10 14:00] LABS: pH (venous) 7.07 (7.32-7.43)
[2020-08-10 14:01] LABS: Actual Bicarbonate (HCO3v) 6 mEq/L (22-28)
[2020-08-10 14:10] LABS: Bacteria/HPF None Seen HPF (None Seen); Bilirubin Negative (Negative); Blood, Urine Trace (Negative); Clarity Clear (Clear); Glucose, Urine (Dipstick) Greater than 1000 mg/dL (Negative); Ketone, Urine 80 mg/dL (Negative); Leukocyte Negative Leu/uL (Negative); Nitrite Negative (Negative); Protein, Urine (Dipstick) 10 mg/dL (Neg-Trace); RBC/HPF 0-3 HPF (0-3); Specific Gravity, Urine 1.026 (1.002-1.036); Squamous Epithelial None Seen HPF (0-3); Urobilinogen Normal mg/dL (Less than 2); WBC/HPF 0-3 HPF (0-3)
[2020-08-10 14:15] LABS: ALT (SGPT) 14 U/L (8-55); AST (SGOT) 16 U/L (5-34); Albumin 3.1 g/dL (3.5-5.0); Alkaline Phosphatase 93 U/L (40-110); BUN (Urea Nitrogen) 65 mg/dL (8.4-25.7); Bilirubin, Total 0.2 mg/dL (0.2-1.2); Calc. Creatinine Clearance 0 mL/min (70-130); Calcium 7.2 mg/dL (7.8-10.44); Carbon Dioxide Less than 8 mmol/L (22-29); Chloride 96 mmol/L (98-107); Globulin 3.2 g/dL (2.4-3.5); Glucose 789 mg/dL (70-105); Lipase 41 U/L (8-78); Potassium 5.2 mmol/L (3.5-5.1); Protein, Total 6.3 g/dL (6.0-8.3); Sodium 129 mmol/L (136-145)
[2020-08-10] MEDS ORDERED: INSULIN REGULAR IN 0.9 % NACL 100 UNIT/100 ML BAG ONE (14:32)
[2020-08-10 15:16] LABS: Actual Bicarbonate (HCO3a) 4.6 mEq/L (22-28); Analyzer IN Cardio ER; Base Excess (BEa) -22.2 mEq/L (-2.0 to +3.0); Carboxyhemoglobin (COHb) 0.1 gm% (0.0-3.0); O2 Tension (PaO2), arterial 66.3 mmHg (> 80.0); Potassium - ABG Lab 4.04 mmol/L (3.70-5.30)
[2020-08-10 15:17] LABS: CO2 Tension 13.9 mmHg (35.0-45.0); pH, Arterial 7.13 (7.35-7.45)
[2020-08-10 15:18] LABS: ALV-art Gradient 66.055 mmHg (0-20); Puncture Site RRA
[2020-08-10] MEDS ORDERED: Dextrose 5 %-0.45 % NaCl 1,000 ML IV PRN ×2 (18:30→19:03)
[2020-08-10] MEDS ORDERED: NS 0.9% w/ 20 MEQ KCL 1,000 ML/1,000 ML BAG IV PRN ×2 (18:30)
[2020-08-10] MEDS ORDERED: Sodium Chloride 0.9% 1,000 ML IV PRN ×8 (18:30→19:03)
[2020-08-10] MEDS ORDERED: HUMULIN R 100 UNITS in Sodium Chloride 0.9% 100 ML IVPB SCH ×2 (18:30→19:03)
[2020-08-10] MEDS ORDERED: Dextrose 5% in Water 1,000 ML IV PRN (18:30)
[2020-08-10] MEDS ORDERED: Dextrose 50% Abboject 50 ML SYRINGE SLOW IVP PRN (18:30)
[2020-08-10] MEDS ORDERED: D5 1/2 NS w/20 mEq KCL 1,000 ML IV PRN (18:30)
[2020-08-10] MEDS ORDERED: ADD ELECTROLYTE REPLACEMENT SET TO PROFILE IVP SCH (18:30)
[2020-08-10] MEDS ORDERED: NS 0.9% w/ 20 MEQ KCL 1,000 ML IV PRN ×2 (19:03)
[2020-08-10] MEDS ORDERED: Electrolyte Replacement Protocol 1 EACH IVPB ONE (19:03)
[2020-08-10 19:13] LABS: Anion Gap 24 mmol/L (10-20); BUN (Urea Nitrogen) 50 mg/dL (8.4-25.7); Calc. Creatinine Clearance 0 mL/min (70-130); Calcium 7.1 mg/dL (7.8-10.44); Chloride 109 mmol/L (98-107); Glucose 418 mg/dL (70-105); Potassium 3.7 mmol/L (3.5-5.1); Sodium 138 mmol/L (136-145)
[2020-08-10] MEDS ORDERED: Sodium Bicarb 50 MEQ/50 ML Abboject 8.4% SYRINGE IVP SCH (19:15)
[2020-08-10 19:19] LABS: Carbon Dioxide 9 mmol/L (22-29)
[2020-08-10 19:38] VITALS: BMI 28.8
[2020-08-10] MEDS: Sodium Chloride 0.9% 1,000 ML IV SCH (19:43)
[2020-08-10] MEDS ORDERED: Electrolyte Replacement Protocol FS PRN (20:00)
[2020-08-10] MEDS: Heparin 5,000 UNITS/ML VIAL SC SCH (21:45)
[2020-08-10 21:49] LABS: Anion Gap 19 mmol/L (10-20); BUN (Urea Nitrogen) 44 mg/dL (8.4-25.7); Calc. Creatinine Clearance 52 mL/min (70-130); Calcium 7.1 mg/dL (7.8-10.44); Carbon Dioxide 15 mmol/L (22-29); Chloride 112 mmol/L (98-107); Glucose 279 mg/dL (70-105); Potassium 3.7 mmol/L (3.5-5.1); Sodium 142 mmol/L (136-145)
[2020-08-10] MEDS: D5 1/2 NS w/20 mEq KCL 1,000 ML IV PRN (22:26)
[2020-08-10 23:41] LABS: Anion Gap 17 mmol/L (10-20); BUN (Urea Nitrogen) 41 mg/dL (8.4-25.7); Calc. Creatinine Clearance 57 mL/min (70-130); Calcium 7.1 mg/dL (7.8-10.44); Carbon Dioxide 16 mmol/L (22-29); Chloride 114 mmol/L (98-107); Glucose 234 mg/dL (70-105); Potassium 3.7 mmol/L (3.5-5.1); Sodium 143 mmol/L (136-145)
[2020-08-11] MEDS: Sodium Chloride 0.9% 1,000 ML IV SCH (00:21)
[2020-08-11] MEDS: D5 1/2 NS w/20 mEq KCL 1,000 ML IV PRN ×2 (02:38→06:24)
[2020-08-11 04:11] LABS: Anion Gap 13 mmol/L (10-20); BUN (Urea Nitrogen) 31 mg/dL (8.4-25.7); Calc. Creatinine Clearance 64 mL/min (70-130); Calcium 7.3 mg/dL (7.8-10.44); Carbon Dioxide 21 mmol/L (22-29); Chloride 116 mmol/L (98-107); Glucose 207 mg/dL (70-105); Potassium 3.6 mmol/L (3.5-5.1); Sodium 146 mmol/L (136-145)
[2020-08-11 04:34] LABS: Band 13 % (5-11); Eosinophils 2 % (0-10); Lymphocytes 6 % (21-51); MDiff Complete? YES; Mean Corpuscular HGB CONC 28.6 g/dL (32.0-36.0); Mean Corpuscular Hemoglobin 24.3 pg (27.0-31.0); Mean Corpuscular Volume 84.9 fL (78.0-98.0); Mean Platelet Volume 7.3 fL (7.4-10.4); Monocytes 10 % (0-10); Neutrophil 69 % (42-75); Platelet Count 239 thou/uL (130-400); RBC Distribution Width 12.5 % (11.5-14.5); RBC Morphology Normal; Red Blood Cell (RBC) Count 4.51 mill/uL (4.70-6.10); White Blood Cell (WBC) Count 7.4 thou/uL (4.8-10.8)
[2020-08-11] MEDS ORDERED: HumaLOG 300 UNITS/3 ML VIAL SC SCH (07:30)
[2020-08-11] MEDS: Heparin 5,000 UNITS/ML VIAL SC SCH (08:04)
[2020-08-11 08:12] LABS: Hemoglobin A1c 11.7 % (4.0-6.0)
[2020-08-11 08:24] LABS: Anion Gap 12 mmol/L (10-20); BUN (Urea Nitrogen) 26 mg/dL (8.4-25.7); Calc. Creatinine Clearance 76 mL/min (70-130); Calcium 7.3 mg/dL (7.8-10.44); Carbon Dioxide 22 mmol/L (22-29); Chloride 116 mmol/L (98-107); Glucose 184 mg/dL (70-105); Potassium 3.7 mmol/L (3.5-5.1); Sodium 146 mmol/L (136-145)
[2020-08-11] MEDS ORDERED: Lantus 1000 UNITS/10 ML VIAL SC SCH (09:15)
[2020-08-11] MEDS ORDERED: HumaLOG 300 UNITS/3 ML VIAL SC PRN (09:21)
[2020-08-11] MEDS: Doxycycline 100 MG CAP PO SCH ×2 (09:47→20:37)
[2020-08-11 13:56] LABS: Anion Gap 12 mmol/L (10-20); BUN (Urea Nitrogen) 19 mg/dL (8.4-25.7); Calc. Creatinine Clearance 83 mL/min (70-130); Calcium 7.5 mg/dL (7.8-10.44); Carbon Dioxide 23 mmol/L (22-29); Chloride 111 mmol/L (98-107); Glucose 171 mg/dL (70-105); Potassium 3.8 mmol/L (3.5-5.1); Sodium 142 mmol/L (136-145)
[2020-08-11] MEDS: HumaLOG 300 UNITS/3 ML VIAL SC PRN (14:08)
[2020-08-11] MEDS ORDERED: Dextrose 5% in Water 1,000 ML IV PRN (14:32)
[2020-08-11] MEDS ORDERED: Dextrose 50% Abboject 50 ML SYRINGE SLOW IVP PRN (14:32)
[2020-08-11] MEDS: Mometasone 200 MCG/Formoterol 5 MCG 120 PUFF INHALER INH SCH (20:37)
[2020-08-12] MEDS: Mometasone 200 MCG/Formoterol 5 MCG 120 PUFF INHALER INH SCH ×2 (05:45→19:40)
[2020-08-12] MEDS: HumaLOG 300 UNITS/3 ML VIAL SC PRN (06:05)
[2020-08-12 06:39] LABS: #Lymphocytes 0.5 thou/uL (1.20-3.40); #Monocytes 0.3 thou/uL (0.11-0.59); #Neutrophils 4.5 thou/uL (1.40-6.50); %Eosinophils 0.2 % (0.0-10.0); %Lymphocytes 8.7 % (21.0-51.0); %Monocytes 5.9 % (0.0-10.0); %Neutrophils 85.3 % (42.0-75.0); Hemoglobin 12.9 g/dL (14.0-18.0); Mean Corpuscular HGB CONC 33.1 g/dL (32.0-36.0); Mean Corpuscular Hemoglobin 28.3 pg (27.0-31.0); Mean Corpuscular Volume 85.6 fL (78.0-98.0); Mean Platelet Volume 7.4 fL (7.4-10.4); Platelet Count 213 thou/uL (130-400); RBC Distribution Width 12.6 % (11.5-14.5); Red Blood Cell (RBC) Count 4.55 mill/uL (4.70-6.10); White Blood Cell (WBC) Count 5.2 thou/uL (4.8-10.8)
[2020-08-12 06:59] LABS: Anion Gap 21 mmol/L (10-20); BUN (Urea Nitrogen) 12 mg/dL (8.4-25.7); Calc. Creatinine Clearance 103 mL/min (70-130); Calcium 7.7 mg/dL (7.8-10.44); Carbon Dioxide 17 mmol/L (22-29); Chloride 106 mmol/L (98-107); Glucose 174 mg/dL (70-105); Potassium 3.6 mmol/L (3.5-5.1); Sodium 140 mmol/L (136-145)
[2020-08-12] MEDS ORDERED: Lantus 1000 UNITS/10 ML VIAL SC SCH ×2 (09:00)
[2020-08-12] MEDS: Carvedilol 6.25 MG TAB PO SCH ×2 (09:03→19:40)
[2020-08-12] MEDS: Enoxaparin Sodium 40 MG/0.4 ML SYRINGE SC SCH (09:03)
[2020-08-12] MEDS: Lantus 1000 UNITS/10 ML VIAL SC SCH (09:03)
[2020-08-12] MEDS: Doxycycline 100 MG CAP PO SCH ×2 (09:03→19:40)
[2020-08-12] MEDS ORDERED: HumaLOG 300 UNITS/3 ML VIAL SC SCH (09:15)
[2020-08-12 12:38] LABS: Anion Gap 15 mmol/L (10-20); BUN (Urea Nitrogen) 11 mg/dL (8.4-25.7); Calc. Creatinine Clearance 108 mL/min (70-130); Calcium 7.7 mg/dL (7.8-10.44); Carbon Dioxide 22 mmol/L (22-29); Chloride 103 mmol/L (98-107); Glucose 131 mg/dL (70-105); Potassium 3.2 mmol/L (3.5-5.1); Sodium 137 mmol/L (136-145)
[2020-08-12] MEDS ORDERED: Potassium Chloride 20 MEQ TAB PO SCH ×2 (12:45→21:30)
[2020-08-12 17:56] LABS: Anion Gap 14 mmol/L (10-20); BUN (Urea Nitrogen) 11 mg/dL (8.4-25.7); Calc. Creatinine Clearance 112 mL/min (70-130); Calcium 7.9 mg/dL (7.8-10.44); Carbon Dioxide 26 mmol/L (22-29); Chloride 101 mmol/L (98-107); Glucose 108 mg/dL (70-105); Potassium 3.4 mmol/L (3.5-5.1); Sodium 138 mmol/L (136-145)
[2020-08-13] MEDS: Mometasone 200 MCG/Formoterol 5 MCG 120 PUFF INHALER INH SCH ×2 (05:48→17:48)
[2020-08-13] MEDS: Carvedilol 6.25 MG TAB PO SCH ×2 (09:03→20:41)
[2020-08-13] MEDS: Lantus 1000 UNITS/10 ML VIAL SC SCH (09:03)
[2020-08-13] MEDS: Doxycycline 100 MG CAP PO SCH ×2 (09:03→20:41)
[2020-08-13] MEDS: Enoxaparin Sodium 40 MG/0.4 ML SYRINGE SC SCH (09:03)
[2020-08-13 09:04] LABS: #Lymphocytes 0.4 thou/uL (1.20-3.40); #Monocytes 0.3 thou/uL (0.11-0.59); #Neutrophils 4.3 thou/uL (1.40-6.50); %Basophils 0.2 % (0.0-1.0); %Lymphocytes 8.1 % (21.0-51.0); %Monocytes 6.3 % (0.0-10.0); %Neutrophils 84.6 % (42.0-75.0); Mean Corpuscular Hemoglobin 28.6 pg (27.0-31.0); Mean Corpuscular Volume 86.9 fL (78.0-98.0); Mean Platelet Volume 7.4 fL (7.4-10.4); Platelet Count 202 thou/uL (130-400); RBC Distribution Width 12.4 % (11.5-14.5); White Blood Cell (WBC) Count 5.1 thou/uL (4.8-10.8)
[2020-08-13 09:20] LABS: Anion Gap 16 mmol/L (10-20); BUN (Urea Nitrogen) 11 mg/dL (8.4-25.7); Calc. Creatinine Clearance 126 mL/min (70-130); Calcium 7.9 mg/dL (7.8-10.44); Carbon Dioxide 23 mmol/L (22-29); Chloride 102 mmol/L (98-107); Glucose 190 mg/dL (70-105); Potassium 3.8 mmol/L (3.5-5.1); Sodium 137 mmol/L (136-145)
[2020-08-14 04:34] VITALS: TEMP 98.5
[2020-08-14] MEDS: HumaLOG 300 UNITS/3 ML VIAL SC PRN ×2 (05:02→11:37)
[2020-08-14 05:57] LABS: #Eosinphils 0.1 thou/uL (0.0-0.7); #Lymphocytes 0.4 thou/uL (1.20-3.40); #Monocytes 0.5 thou/uL (0.11-0.59); #Neutrophils 3.9 thou/uL (1.40-6.50); %Basophils 0.1 % (0.0-1.0); %Eosinophils 2.5 % (0.0-10.0); %Monocytes 9.7 % (0.0-10.0); %Neutrophils 79.6 % (42.0-75.0); Hemoglobin 12.3 g/dL (14.0-18.0); Mean Corpuscular HGB CONC 33.8 g/dL (32.0-36.0); Mean Corpuscular Hemoglobin 29.5 pg (27.0-31.0); Mean Corpuscular Volume 87.1 fL (78.0-98.0); Mean Platelet Volume 7.4 fL (7.4-10.4); Platelet Count 205 thou/uL (130-400); RBC Distribution Width 12.1 % (11.5-14.5); Red Blood Cell (RBC) Count 4.18 mill/uL (4.70-6.10); White Blood Cell (WBC) Count 4.9 thou/uL (4.8-10.8)
[2020-08-14] MEDS: Mometasone 200 MCG/Formoterol 5 MCG 120 PUFF INHALER INH SCH (06:06)
[2020-08-14 06:17] LABS: Anion Gap 9 mmol/L (10-20); BUN (Urea Nitrogen) 10 mg/dL (8.4-25.7); Calc. Creatinine Clearance 151 mL/min (70-130); Carbon Dioxide 30 mmol/L (22-29); Chloride 100 mmol/L (98-107); Glucose 190 mg/dL (70-105); Potassium 3.4 mmol/L (3.5-5.1); Sodium 136 mmol/L (136-145)
[2020-08-14] MEDS ORDERED: Potassium Chloride 20 MEQ TAB PO SCH (06:45)
[2020-08-14] MEDS: Lantus 1000 UNITS/10 ML VIAL SC SCH (08:39)
[2020-08-14] MEDS: Doxycycline 100 MG CAP PO SCH (08:39)
[2020-08-14] MEDS: Enoxaparin Sodium 40 MG/0.4 ML SYRINGE SC SCH (08:39)
[2020-08-14] MEDS: Carvedilol 6.25 MG TAB PO SCH (08:39)
[2020-08-14 13:01] VITALS: BP 153/88
== END 2020-08-14 13:01 | disposition home or self-care (01) | DRG 177 ==
LOC: ERS 12:22 → CCU 14:33 → T4-A 08-11 17:56
PROVIDERS: ADMIT Student in an Organized Health Care Education/Training Program; ATTEND Student in an Organized Health Care Education/Training Program
PROC: 8E0ZXY6 Isolation (ICD-10-PCS; principal; 2020-08-10)
PROC: 06HY33Z Insertion of Infusion Device into Lower Vein, Percutaneous Approach (ICD-10-PCS; 2020-08-10)
DX: U07.1 COVID-19 (principal); J12.82 Pneumonia due to coronavirus disease 2019; E11.10 Type 2 diabetes mellitus with ketoacidosis without coma; G93.41 Metabolic encephalopathy; N17.9 Acute kidney failure, unspecified; C19 Malignant neoplasm of rectosigmoid junction; I42.9 Cardiomyopathy, unspecified; E46 Unspecified protein-calorie malnutrition; I50.22 Chronic systolic (congestive) heart failure; Z66 Do not resuscitate; T68.XXXA Hypothermia, initial encounter; I11.0 Hypertensive heart disease with heart failure; I95.9 Hypotension, unspecified; E87.5 Hyperkalemia; E86.0 Dehydration; Z79.84 Long term (current) use of oral hypoglycemic drugs; Z90.89 Acquired absence of other organs; Z98.890 Other specified postprocedural states; Z68.27 Body mass index [BMI] 27.0-27.9, adult; F17.220 Nicotine dependence, chewing tobacco, uncomplicated
CPT/HCPCS: 0240U; 36415; 36416; 36556; 36600; 51702; 71045; 74018; 80048; 80053; 81003; 81015; 82010; 82805; 83036; 83605; 83690; 83735; 84100; 84443; 85025; 85652; 86140; 87040; 87086; 93005; 93010; 94760; 96365; 96366; 99292; J1644; J1650; J1815; J3480; J3490

== ENCOUNTER 2021-07-06 10:06 | Emergency (ER) | payer BC ==
[2021-07-06 10:54] LABS: #Eosinphils 0.1 thou/uL (0.0-0.7); #Lymphocytes 1.1 thou/uL (1.20-3.40); #Monocytes 0.5 thou/uL (0.11-0.59); #Neutrophils 5.6 thou/uL (1.40-6.50); %Basophils 0.6 % (0.0-1.0); %Eosinophils 1.2 % (0.0-10.0); %Lymphocytes 14.6 % (21.0-51.0); %Neutrophils 76.7 % (42.0-75.0); Hemoglobin 14.9 g/dL (14.0-18.0); Mean Corpuscular HGB CONC 31.3 g/dL (32.0-36.0); Mean Corpuscular Hemoglobin 27.3 pg (27.0-31.0); Mean Corpuscular Volume 87.2 fL (78.0-98.0); Mean Platelet Volume 8.1 fL (7.4-10.4); Platelet Count 245 thou/uL (130-400); RBC Distribution Width 15.1 % (11.5-14.5); Red Blood Cell (RBC) Count 5.46 mill/uL (4.70-6.10); White Blood Cell (WBC) Count 7.4 thou/uL (4.8-10.8)
[2021-07-06 11:17] LABS: ALT (SGPT) 35 U/L (8-55); AST (SGOT) 31 U/L (5-34); Albumin 4.2 g/dL (3.4-4.8); Alkaline Phosphatase 197 U/L (40-110); Anion Gap 16 mmol/L (10-20); BUN (Urea Nitrogen) 13 mg/dL (8.4-25.7); Calc. Creatinine Clearance 0 mL/min (70-130); Calcium 9.5 mg/dL (7.8-10.44); Carbon Dioxide 27 mmol/L (23-31); Chloride 102 mmol/L (98-107); Globulin 3.2 g/dL (2.4-3.5); Glucose 254 mg/dL (80-115); Protein, Total 7.4 g/dL (5.8-8.1); Sodium 140 mmol/L (136-145)
[2021-07-06] MEDS ORDERED: Furosemide 40 MG/4 ML VIAL ONE (13:00)
== END 2021-07-06 13:47 | disposition home or self-care (01) ==
LOC: ERS 10:06
DX: I11.0 Hypertensive heart disease with heart failure (principal); I50.9 Heart failure, unspecified; R94.31 Abnormal electrocardiogram [ECG] [EKG]; E11.9 Type 2 diabetes mellitus without complications; F17.220 Nicotine dependence, chewing tobacco, uncomplicated; Z85.048 Personal history of other malignant neoplasm of rectum, rectosigmoid junction, and anus; Z79.84 Long term (current) use of oral hypoglycemic drugs; Z79.899 Other long term (current) drug therapy
CPT/HCPCS: 36415; 71046; 80053; 83880; 84484; 85025; 93005; 96374; J1940

== ENCOUNTER 2021-08-12 09:46 | Emergency (ER) | payer BC ==
[~2021-08-12 09:46] MED LIST: ISOVUE-370 76%-LOCM 1 ML ONE
[2021-08-12 10:50] LABS: #Eosinphils 0.1 thou/uL (0.0-0.7); #Lymphocytes 0.9 thou/uL (1.20-3.40); #Monocytes 0.5 thou/uL (0.11-0.59); #Neutrophils 4.7 thou/uL (1.40-6.50); %Basophils 0.7 % (0.0-1.0); %Eosinophils 1.6 % (0.0-10.0); %Lymphocytes 13.7 % (21.0-51.0); %Monocytes 8.5 % (0.0-10.0); %Neutrophils 75.6 % (42.0-75.0); Hemoglobin 14.3 g/dL (14.0-18.0); Mean Corpuscular HGB CONC 31.1 g/dL (32.0-36.0); Mean Platelet Volume 8.6 fL (7.4-10.4); Platelet Count 340 thou/uL (130-400); RBC Distribution Width 17.2 % (11.5-14.5); White Blood Cell (WBC) Count 6.2 thou/uL (4.8-10.8)
[2021-08-12 10:56] LABS: INR-International Normal Ratio 1.4; PTT 33.8 sec (22.9-36.1); Prothrombin Time 17.3 sec (12.0-14.7)
[2021-08-12 11:07] LABS: ALT (SGPT) 176 U/L (8-55); AST (SGOT) 230 U/L (5-34); Albumin 3.6 g/dL (3.4-4.8); Alkaline Phosphatase 1075 U/L (40-110); Anion Gap 22 mmol/L (10-20); BUN (Urea Nitrogen) 24 mg/dL (8.4-25.7); Bilirubin, Total 6.8 mg/dL (0.2-1.2); CK (CPK) 104 U/L (30-200); Calc. Creatinine Clearance 0 mL/min (70-130); Calcium 9.8 mg/dL (7.8-10.44); Carbon Dioxide 24 mmol/L (23-31); Chloride 97 mmol/L (98-107); Estimated GFR 75; Globulin 3.7 g/dL (2.4-3.5); Glucose 323 mg/dL (80-115); Lipase 41 U/L (8-78); Potassium 4.2 mmol/L (3.5-5.1); Protein, Total 7.3 g/dL (5.8-8.1); Sodium 139 mmol/L (136-145)
[2021-08-12] MEDS ORDERED: Heparin 25,000 units/D5W 500 ML IV SCH (14:00)
[2021-08-12] MEDS ORDERED: Heparin 25,000 units/D5W 500 ML ONE (14:09)
[2021-08-12] MEDS ORDERED: Heparin 10,000 UNITS/ 10 ML VIAL SLOW IVP SCH (14:15)
[2021-08-12 16:51] LABS: SARS-CoV-2 NAA Rapid Test Not Detected (NotDetected)
== END 2021-08-12 15:39 | disposition short-term general hospital (02) ==
LOC: ERS 09:46
DX: I82.220 Acute embolism and thrombosis of inferior vena cava (principal); E87.2 Acidosis; E11.9 Type 2 diabetes mellitus without complications; I10 Essential (primary) hypertension; F17.220 Nicotine dependence, chewing tobacco, uncomplicated; Z79.899 Other long term (current) drug therapy; Z79.84 Long term (current) use of oral hypoglycemic drugs; Z20.822 Contact with and (suspected) exposure to COVID-19
CPT/HCPCS: 36415; 71045; 74177; 80053; 82550; 83605; 83690; 83880; 84484; 85025; 85610; 85730; 86850; 86900; 86901; 93005; 93970; 94760; 96361; 96365; 96376; J1644; Q9966; U0002

== ENCOUNTER 2021-08-21 21:16 | Inpatient (IN) | payer BC ==
[2021-08-21 21:59] LABS: #Eosinphils 0.1 thou/uL (0.0-0.7); #Monocytes 0.6 thou/uL (0.11-0.59); #Neutrophils 5.1 thou/uL (1.40-6.50); %Basophils 0.6 % (0.0-1.0); %Eosinophils 1.1 % (0.0-10.0); %Lymphocytes 14.2 % (21.0-51.0); %Monocytes 8.8 % (0.0-10.0); %Neutrophils 75.4 % (42.0-75.0); Hemoglobin 15.9 g/dL (14.0-18.0); Mean Corpuscular HGB CONC 32.6 g/dL (32.0-36.0); Mean Corpuscular Hemoglobin 28.7 pg (27.0-31.0); Mean Corpuscular Volume 88.1 fL (78.0-98.0); Mean Platelet Volume 9.7 fL (7.4-10.4); Platelet Count 296 thou/uL (130-400); RBC Distribution Width 20.8 % (11.5-14.5); Red Blood Cell (RBC) Count 5.54 mill/uL (4.70-6.10); White Blood Cell (WBC) Count 6.7 thou/uL (4.8-10.8)
[2021-08-21 22:18] LABS: ALT (SGPT) 119 U/L (8-55); AST (SGOT) 144 U/L (5-34); Albumin 3.2 g/dL (3.4-4.8); Alkaline Phosphatase 997 U/L (40-110); Anion Gap 27 mmol/L (10-20); BUN (Urea Nitrogen) 80 mg/dL (8.4-25.7); Bilirubin, Total 22.3 mg/dL (0.2-1.2); Calc. Creatinine Clearance 0 mL/min (70-130); Calcium 9.3 mg/dL (7.8-10.44); Carbon Dioxide 19 mmol/L (23-31); Chloride 96 mmol/L (98-107); Estimated GFR 17; Globulin 3.1 g/dL (2.4-3.5); Glucose 268 mg/dL (80-115); Lipase 96 U/L (8-78); Potassium 5.3 mmol/L (3.5-5.1); Protein, Total 6.3 g/dL (5.8-8.1); Sodium 137 mmol/L (136-145)
[2021-08-21 22:19] LABS: Bilirubin, Total 21.5 mg/dL (0.2-1.2)
[2021-08-21] MEDS ORDERED: niCARdipine 25 MG/10 ML VIAL ONE (23:02)
[2021-08-21] MEDS ORDERED: NOREPINEPHRINE 8 MG/250 ML-D5W 250 ML ONE (23:07)
[2021-08-21] MEDS ORDERED: Cefepime 2 GM VIAL ONE (23:24)
[2021-08-21] MEDS ORDERED: Vancomycin 1 GM/200 ML BAG ONE (23:42)
[2021-08-21 23:44] LABS: Bacteria/HPF None Seen HPF (None Seen); Bilirubin 2+ (Negative); Blood, Urine Negative (Negative); Clarity Turbid (Clear); Glucose, Urine (Dipstick) 100 mg/dL (Negative); Ketone, Urine Negative (Negative); Leukocyte 25 Leu/uL (Negative); Nitrite Negative (Negative); Protein, Urine (Dipstick) 30 mg/dL (Neg-Trace); RBC/HPF 0-3 HPF (0-3); Specific Gravity, Urine 1.024 (1.002-1.036); Sperm/HPF Rare HPF (None Seen); Squamous Epithelial 0-3 HPF (0-3); Urobilinogen Normal mg/dL (Less than 2); pH, Urine 5.5 (5.0-9.0)
[2021-08-22 01:04] LABS: Bilirubin, Direct 15.6 mg/dL (0.1-0.3)
[2021-08-22] MEDS ORDERED: Dextrose 50% Abboject 50 ML SYRINGE SLOW IVP PRN (01:10)
[2021-08-22] MEDS ORDERED: Ondansetron PF 4 MG/2 ML Vial IVP PRN (01:10)
[2021-08-22] MEDS ORDERED: Ondansetron ODT 4 MG TAB PO PRN (01:10)
[2021-08-22] MEDS ORDERED: Dextrose 5% in Water 1,000 ML IV PRN (01:10)
[2021-08-22] MEDS ORDERED: HumaLOG 300 UNITS/3 ML VIAL SC PRN (01:14)
[2021-08-22] MEDS ORDERED: Lidocaine 1% MPF 2 ML VIAL ONE (01:24)
[2021-08-22] MEDS ORDERED: Heparin 1,000 UNITS/ML VIAL SLOW IVP SCH (01:30)
[2021-08-22 01:35] LABS: Lactic Acid 6.4 mmol/L (0.5-2.2)
[2021-08-22] MEDS ORDERED: Heparin 10,000 UNITS/ 10 ML VIAL SLOW IVP SCH (01:45)
[2021-08-22] MEDS ORDERED: Vancomycin HCl 750 MG in Sodium Chloride 0.9% 250 ML 250 ML IVPB SCH (02:00)
[2021-08-22 02:15] LABS: INR-International Normal Ratio 1.3; PTT 34.4 sec (22.9-36.1); Prothrombin Time 16.4 sec (12.0-14.7)
[2021-08-22] MEDS ORDERED: Electrolyte Replacement Protocol 1 EACH FS ONE (02:45)
[2021-08-22] MEDS ORDERED: Lactated Ringer's 1,000 ML IV SCH (02:45)
[2021-08-22] MEDS: Lactated Ringer's 1,000 ML IV SCH ×2 (04:04→11:09)
[2021-08-22] MEDS: Heparin 25,000 units/D5W 500 ML IV SCH ×2 (04:04→22:02)
[2021-08-22] MEDS: NOREPINEPHRINE 8 MG/250 ML-D5W 250 ML IVPB PRN ×3 (04:38→19:25)
[2021-08-22 04:48] LABS: ALT (SGPT) 99 U/L (8-55); AST (SGOT) 122 U/L (5-34); Albumin 2.8 g/dL (3.4-4.8); Alkaline Phosphatase 803 U/L (40-110); Anion Gap 25 mmol/L (10-20); BUN (Urea Nitrogen) 79 mg/dL (8.4-25.7); Bilirubin, Total 18.9 mg/dL (0.2-1.2); Calc. Creatinine Clearance 29 mL/min (70-130); Calcium 8.8 mg/dL (7.8-10.44); Carbon Dioxide 16 mmol/L (23-31); Chloride 100 mmol/L (98-107); Estimated GFR 19; Glucose 297 mg/dL (80-115); Potassium 5.1 mmol/L (3.5-5.1); Protein, Total 5.8 g/dL (5.8-8.1); Sodium 136 mmol/L (136-145)
[2021-08-22 04:51] LABS: #Lymphocytes 0.9 thou/uL (1.20-3.40); #Monocytes 0.9 thou/uL (0.11-0.59); #Neutrophils 7.1 thou/uL (1.40-6.50); %Basophils 0.3 % (0.0-1.0); %Eosinophils 0.4 % (0.0-10.0); %Lymphocytes 10.3 % (21.0-51.0); %Monocytes 10.1 % (0.0-10.0); Hemoglobin 14.3 g/dL (14.0-18.0); Mean Corpuscular HGB CONC 30.9 g/dL (32.0-36.0); Mean Corpuscular Hemoglobin 27.5 pg (27.0-31.0); Mean Corpuscular Volume 89.1 fL (78.0-98.0); Mean Platelet Volume 9.9 fL (7.4-10.4); Platelet Count 366 thou/uL (130-400); RBC Distribution Width 21.4 % (11.5-14.5); Red Blood Cell (RBC) Count 5.21 mill/uL (4.70-6.10); White Blood Cell (WBC) Count 8.9 thou/uL (4.8-10.8)
[2021-08-22 04:57] LABS: Lactic Acid 6.1 mmol/L (0.5-2.2)
[2021-08-22] MEDS: HumaLOG 300 UNITS/3 ML VIAL SC PRN ×4 (04:58→21:00)
[2021-08-22 09:32] LABS: SARS-CoV-2 NAA Rapid Test Not Detected (NotDetected)
[2021-08-22 10:33] LABS: PTT 164.2 sec (22.9-36.1)
[2021-08-22] MEDS: Vasopressin 20 UNIT, Admixture Fee 1 EACH in Sodium Chloride 0.9% 50 ML IV SCH ×2 (13:14→19:25)
[2021-08-22] MEDS: Albumin 25% 25 GM/100 ML BOT IVPB SCH ×2 (13:14→19:25)
[2021-08-22] MEDS: Pantoprazole 40 MG VIAL IVP SCH (19:25)
[2021-08-22] MEDS ORDERED: Vancomycin 1 GM in Premix Bag 1 BAG IVPB SCH (22:00)
[2021-08-22] MEDS ORDERED: Cefepime 1 GM in Sodium Chloride 0.9% 100 ML IVPB SCH (23:00)
[2021-08-22] MEDS ORDERED: Vancomycin 1.5 GM in Premix Bag 1 BAG IVPB SCH (23:30)
[2021-08-23] MEDS: Albumin 25% 25 GM/100 ML BOT IVPB SCH ×4 (00:07→16:50)
[2021-08-23] MEDS ORDERED: Lactated Ringer's 1,000 ML IV SCH (04:00)
[2021-08-23 04:46] LABS: INR-International Normal Ratio 1.6; Prothrombin Time 19.2 sec (12.0-14.7)
[2021-08-23 04:47] LABS: PTT 85.4 sec (22.9-36.1)
[2021-08-23 04:54] LABS: Lactic Acid 2.2 mmol/L (0.5-2.2)
[2021-08-23 05:01] LABS: ALT (SGPT) 80 U/L (8-55); AST (SGOT) 105 U/L (5-34); Albumin 3.4 g/dL (3.4-4.8); Alkaline Phosphatase 629 U/L (40-110); Anion Gap 22 mmol/L (10-20); BUN (Urea Nitrogen) 81 mg/dL (8.4-25.7); Bilirubin, Total 20.1 mg/dL (0.2-1.2); Calc. Creatinine Clearance 25 mL/min (70-130); Calcium 8.9 mg/dL (7.8-10.44); Carbon Dioxide 19 mmol/L (23-31); Chloride 99 mmol/L (98-107); Estimated GFR 16; Globulin 2.4 g/dL (2.4-3.5); Glucose 303 mg/dL (80-115); Potassium 4.6 mmol/L (3.5-5.1); Protein, Total 5.8 g/dL (5.8-8.1); Sodium 135 mmol/L (136-145)
[2021-08-23] MEDS: HumaLOG 300 UNITS/3 ML VIAL SC PRN ×3 (05:25→17:43)
[2021-08-23 05:35] LABS: #Eosinphils 0.1 thou/uL (0.0-0.7); #Monocytes 0.8 thou/uL (0.11-0.59); #Neutrophils 4.7 thou/uL (1.40-6.50); %Eosinophils 1.3 % (0.0-10.0); %Monocytes 12.4 % (0.0-10.0); %Neutrophils 71.3 % (42.0-75.0); Band 12 % (5-11); Hemoglobin 12.2 g/dL (14.0-18.0); Lymphocytes 15 % (21-51); MDiff Complete? YES; Mean Corpuscular HGB CONC 31.7 g/dL (32.0-36.0); Mean Corpuscular Hemoglobin 28.1 pg (27.0-31.0); Mean Corpuscular Volume 88.7 fL (78.0-98.0); Monocytes 6 % (0-10); Neutrophil 67 % (42-75); Platelet Count 205 thou/uL (130-400); RBC Distribution Width 21.4 % (11.5-14.5); Red Blood Cell (RBC) Count 4.33 mill/uL (4.70-6.10); White Blood Cell (WBC) Count 6.5 thou/uL (4.8-10.8)
[2021-08-23] MEDS: Vasopressin 20 UNIT, Admixture Fee 1 EACH in Sodium Chloride 0.9% 50 ML IV SCH ×2 (06:50→10:26)
[2021-08-23] MEDS: Pantoprazole 40 MG VIAL IVP SCH (07:47)
[2021-08-23 08:53] LABS: Troponin I 0.012 ng/mL (< 0.028)
[2021-08-23] MEDS ORDERED: Albumin 25% 25 GM/100 ML BOT IVPB SCH (09:30)
[2021-08-23 10:08] VITALS: BMI 30.7
[2021-08-23] MEDS ORDERED: Insulin Glargine 30 UNITS/0.3 ML VIAL SC SCH (10:30)
[2021-08-23] MEDS ORDERED: Acetaminophen 500 MG TAB PO PRN (10:59)
[2021-08-23] MEDS ORDERED: Acetaminophen 500 MG TAB PO SCH (11:00)
[2021-08-23] MEDS: oxyCODONE 5 MG TAB PO PRN ×2 (11:17→16:51)
[2021-08-23 17:19] VITALS: TEMP 97.7
[2021-08-23] MEDS: NOREPINEPHRINE 8 MG/250 ML-D5W 250 ML IVPB PRN (17:47)
[2021-08-24] MEDS ORDERED: Insulin Glargine 30 UNITS/0.3 ML VIAL SC SCH (09:00)
== END 2021-08-23 20:50 | disposition hospice, inpatient (51) | DRG 871 ==
LOC: ERS 21:16 → CCU 23:39
PROVIDERS: ADMIT Family Medicine; ATTEND Family Medicine
PROC: 3E04329 Introduction of Other Anti-infective into Central Vein, Percutaneous Approach (ICD-10-PCS; principal; 2021-08-21)
PROC: 3E043XZ Introduction of Vasopressor into Central Vein, Percutaneous Approach (ICD-10-PCS; 2021-08-21)
PROC: 06HY33Z Insertion of Infusion Device into Lower Vein, Percutaneous Approach (ICD-10-PCS; 2021-08-21)
DX: A41.9 Sepsis, unspecified organism (principal); Z20.822 Contact with and (suspected) exposure to COVID-19; Z66 Do not resuscitate; Z51.5 Encounter for palliative care; R65.21 Severe sepsis with septic shock; I81 Portal vein thrombosis; K83.1 Obstruction of bile duct; K76.7 Hepatorenal syndrome; I50.43 Acute on chronic combined systolic (congestive) and diastolic (congestive) heart failure; N39.0 Urinary tract infection, site not specified; C19 Malignant neoplasm of rectosigmoid junction; C78.7 Secondary malignant neoplasm of liver and intrahepatic bile duct; R18.8 Other ascites; N17.9 Acute kidney failure, unspecified; K92.1 Melena; E87.1 Hypo-osmolality and hyponatremia; E80.6 Other disorders of bilirubin metabolism; I11.0 Hypertensive heart disease with heart failure; E11.9 Type 2 diabetes mellitus without complications; E87.5 Hyperkalemia; Z79.899 Other long term (current) drug therapy; Z79.84 Long term (current) use of oral hypoglycemic drugs; Z79.4 Long term (current) use of insulin; Z90.89 Acquired absence of other organs; Z90.49 Acquired absence of other specified parts of digestive tract; Z87.891 Personal history of nicotine dependence; Z93.3 Colostomy status
CPT/HCPCS: 36415; 36416; 71045; 74176; 76705; 80053; 81003; 81015; 82140; 82247; 82274; 83605; 83690; 83880; 84484; 85025; 85610; 85730; 87040; 87086; 93005; C9113; J0692; J1644; J1815; J3370; J3490; J7050; J7120; P9047; U0002

== ENCOUNTER 2021-08-23 20:49 | Inpatient (IN) | payer OTHER ==
[2021-08-23] MEDS ORDERED: Morphine 4 MG/ML VIAL SLOW IVP PRN (21:06)
[2021-08-23] MEDS ORDERED: oxyCODONE 5 MG TAB PO PRN (21:07)
[2021-08-23] MEDS ORDERED: Loperamide HCl 2 MG CAP PO PRN (21:15)
[2021-08-23] MEDS ORDERED: Promethazine HCl 25 MG SUPP PR PRN (21:15)
[2021-08-23] MEDS ORDERED: Milk Of Magnesia 30 ML UDCUP PO PRN (21:15)
[2021-08-23] MEDS ORDERED: Hyoscyamine Sulfate SL 0.125 mg Tablet SL PRN (21:15)
[2021-08-23] MEDS ORDERED: Haloperidol Lactate 5 MG/ML VIAL SLOW IVP PRN (21:15)
[2021-08-23] MEDS ORDERED: Acetaminophen 650 MG Suppository PR PRN (21:15)
[2021-08-23] MEDS ORDERED: Scopolamine 1.5 mg/72 hour Patch TOP PRN (21:15)
[2021-08-23] MEDS ORDERED: Zolpidem Tartrate 5 MG TAB PO PRN (21:15)
[2021-08-23] MEDS ORDERED: Ondansetron PF 4 MG/2 ML Vial IVP PRN (21:15)
[2021-08-23] MEDS ORDERED: Lorazepam 2 MG/ML VIAL SLOW IVP PRN (21:15)
[2021-08-23] MEDS ORDERED: Senokot S 8.6-50 MG TAB PO PRN (21:17)
[2021-08-24 00:09] VITALS: BMI 29.7
[2021-08-24] MEDS: diphenhydrAMINE 50 MG/ML VIAL IVP PRN ×2 (00:18→11:29)
[2021-08-24 08:59] VITALS: BP 92/62; TEMP 98
== END 2021-08-24 17:40 | disposition hospice, home (50) | DRG 951 ==
LOC: CCU 20:49 → T4-B 21:58
PROVIDERS: ADMIT Family Medicine; ATTEND Family Medicine
DX: Z51.5 Encounter for palliative care (principal); A41.9 Sepsis, unspecified organism; R65.21 Severe sepsis with septic shock; C19 Malignant neoplasm of rectosigmoid junction; K92.2 Gastrointestinal hemorrhage, unspecified; Z66 Do not resuscitate; Z20.822 Contact with and (suspected) exposure to COVID-19; D64.9 Anemia, unspecified; N18.9 Chronic kidney disease, unspecified; Z74.01 Bed confinement status
CPT/HCPCS: 36416; J1200; J2405